=== PATIENT | male | born 1950 | race Caucasian/White ===

== ENCOUNTER 2017-06-13 01:01 | Emergency (ER) | payer OTHER ==
[~2017-06-13] VITALS: Ht 172.7 cm; Wt 90.9 kg
[2017-06-13 01:18] VITALS: BP 119/70; PULSE 78; RESP 16; O2SAT 95
--- NOTE | 2017-06-13 01:31 | ED.REPORT ---
HPI-Rash / Abscess Date of Service Jun 13, 2017 ED Provider: Neri Gross MD Pt is a 67 year old male with a history of HTN who presents to the ED complaining of shaking onset 13:30 today. He c/o associated left ankle swelling , left leg swelling, and left leg pain. He denies abdominal pain, open sores, and denies a history of cellulitis. The pt reports that he has been experiencing "flu-like symptoms" and his "skin feels like it is burning" since onset. He took aspirin without relief prior to arrival. Pt denies recent travel and states that he has not had his flu shot. Nursing Notes Stated Complaint: LEFT LEG/ ANKLE PAIN Chief Complaint: Extremity Trauma Nursing Notes Reviewed: Yes Allergies: Coded Allergies: No Known Allergies (Verified , 07/04/05) General Time Seen by MD: 01:29 Chief Complaint Other (Shaking) Hx Obtained From: Patient Arrived By: Walk-in Onset Occurred: 5 - 8 hours ago Symptom Duration: Since onset Location: : Lower extremity Quality: Painful Severity: Current: Moderate Severity: Maximum: Moderate Recent Healthcare: No recent doctor visit, No recent hospitalization Similar Sx Previous: No Past Medical History Past Medical History Reports: Hypertension Past Surgical History Triple bypass Smoking History Current Every Day Smoker Social History Alcohol Use: "Social" Drug Use: Denies drug use Ambulatory Status Independent Review of Systems GI: Denies: Abdominal pain Musculoskeletal: Reports: Extremity pain, Extremity swelling, Joint pain Complete sys rev & neg: except as marked. Neurologic: Reports: Shaking Physical Exam Initial Vital Signs Vital Signs (First) Date Time Temp Pulse Resp B/P Pulse Ox O2 Delivery O2 Flow Rate FiO2 06/13/17 01:18 37.2 78 16 119/70 95 Room Air Initial VS: Reviewed, Vital signs normal Head / Eyes: Atraumatic, Normocephalic Neck: Supple, Full range of motion Respiratory: Breath sounds normal, Clear to auscultation, No respiratory distress Cardiovascular: Regular rate & rhythm, Heart sounds normal, Intact distal pulses Neurologic: Alert, Oriented, Nonfocal Psychiatric: Mood/affect normal, Behavior normal General/Constitutional: Awake, Alert, Cooperative Skin: Warm, Dry Lower Extremity / Pelvis / MS: Neurologic intact, Vascular intact Erythematous tender swollen left lower leg. Abdomen: Atraumatic, Soft, Non-tender Reducible umbilical hernia Interpretation & Diagnostics Lab Results Interpretation Result Diagram: 06/13/17 0215 06/13/17 0215 Test 06/13/17 01:55 06/13/17 02:15 06/13/17 02:30 Hold Purple Top Tube Received (Received) Hold Blue Top Tube Received (Received) Hold Red Top Tube Received (Received) Hold [place] Top Tube Received (Received) Hold [place] Top Tube Received (Received) White Blood Count 14.0th/mm3 (3.8-10.1) Red Blood Count 3.95mil/mm3 (4.40-5.80) Hemoglobin 13.4g/dL (13.8-17.2) Hematocrit 39.9% (41.0-50.0) Mean Corpuscular Volume 101.0fL (81-100) Mean Corpuscular Hemoglobin 33.9pg (27.0-35.0) Mean Corpuscular Hemoglobin Concent 33.6% (32.0-37.0) Red Cell Distribution Width 12.9% (12.3-15.4) Platelet Count 161bil/L (150-400) Neutrophils (%) (Auto) 84% (40-74) Lymphocytes (%) (Auto) 5% (14-46) Monocytes (%) (Auto) 1% (4-12) Eosinophils (%) (Auto) 0% (0-5) Basophils (%) (Auto) 0% (0-3) Band Neutrophils % 10% (1-5) Sodium Level 135mEq/L (134-144) Potassium Level 5.1mEq/L (3.5-5.2) Chloride Level 96mEq/L (97-108) Carbon Dioxide Level 21mmol/L (18-29) Blood Urea Nitrogen 39mg/dL (8-27) Creatinine 1.76mg/dL (0.76-1.27) Estimat Glomerular Filtration Rate 41mL/min (>59) Glucose Level 118mg/dL (60-99) Lactic Acid Level 0.2mmol/L (0.4-2.0) Calcium Level 9.1mg/dL (8.5-10.1) Magnesium Level 1.5mg/dL (1.6-2.6) Total Bilirubin 1.8mg/dL (0.0-1.2) Aspartate Amino Transf (AST/SGOT) 36U/L (0-50) Alanine Aminotransferase (ALT/SGPT) 33U/L (0-44) Alkaline Phosphatase 62U/L (25-160) Troponin T 0.010ug/L (0.0-0.011) Total Protein 7.4g/dL (6.4-8.4) Albumin 4.5g/dL (3.4-5.0) Prothrombin Time 15.8sec (8.1-12.5) Prothromb Time International Ratio 1.47ratio Lab Results Interpretation: White blood count, dehydration ECG Interpretation ECG Interpretation: Atrial fibrillation with a rate of 89. Time: 02:33 Interpreted by: ED physician Re-Eval/Medical Decision Med Decision/Clinical Course 67-year-old male who has a left lower extremity cellulitis with some shaking riders earlier. His white count is elevated with a shift to the left. His lactic acid is normal. He does not have unstable vital signs. He was given IV clindamycin and Rocephin and will be discharged home with IV clindamycin. He will follow-up with his primary doctor or return here for recheck in one to 2 days if it is not improving. Source of Hx: Old records Re-Evaluation/Progress : Time of Eval: 05:01 Re-Evaluation/Progress Note: Pt rechecked. Informed pt of plan for discharge. Pt understands and agrees with plan for discharge. F/U instructions and RTER warnings given. All questions addressed. Counseled Regarding: Diagnosis, Lab results, Need for follow-up, When/why to return to ED Discharge & Departure Impression: Primary Impression: Cellulitis of left lower leg Disposition: Home Discharge Condition All VS Reviewed: Yes Condition: Stable Patient Instructions: Cellulitis (ED) Additional Instructions: There is an infection of the lower leg. Your white blood count is elevated at 14,000. UA were given first doses of Rocephin and clindamycin antibiotics IV. Continue the clindamycin orally, 300 mg 3 times a day, prepack dispensed. Tylenol as needed for pain. Oxycodone/acetaminophen 5/325, one every 4-6 hours as needed for severe pain, #10 dispensed. Drink plenty of fluids. Warm compresses to the leg. Elevation of the leg. If you worsen significantly with more swelling, more pain, fever, or lightheadedness and dizziness, return to the emergency room. Call me at [phone] between the hours of 9 PM and 6 AM Friday or Friday night if you have any questions or concerns. Referrals: Dre Hanley MD (PCP) Scribe Attestation Portions of this note were transcribed by Adriana Jaime. I, Dr. Gross personally performed the history, physical exam and medical decision-making; I reviewed and confirmed the accuracy of the information in the transcribed note. Signed by: Danni Clemente, 06/13/17 and 03:30. copies to: Dre Hanley MD, Howard L MD Jun 13, 2017 01:31 Adriana Pavon Jun 13, 2017 01:39
[2017-06-13] MEDS ORDERED: Clindamycin Inj 900 MG in IV Premix 1 EACH IV ONE (02:15)
[2017-06-13] MEDS ORDERED: cefTRIAXone Inj 2,000 MG in Dextrose 5% Minibag Plus 50 ML IV ONE (02:15)
[2017-06-13] MEDS ORDERED: 0.9% Sodium Chloride 1,000 ML IV ONE (02:15)
[2017-06-13 02:28] LABS: EOSINOPHILS % (AUTO) 0 % (0-5); Mean Corpuscular Hemoglobin 33.9 pg (27.0-35.0); Platelet Count 161 bil/L (150-400)
[2017-06-13 02:36] LABS: TROPONIN T 0.01 ug/L (0.0-0.011)
[2017-06-13] MEDS ORDERED: Acetaminophen IV 1,000 MG in IV Premix 1 EACH IV ONE (02:40)
[2017-06-13 02:46] LABS: Magnesium 1.5 mg/dL (1.6-2.6)
[2017-06-13 02:52] LABS: INR 1.47 ratio
[2017-06-13 03:01] LABS: BASOPHILS % (AUTO) 0 % (0-3); MONOCYTES % (AUTO) 1 % (4-12); NEUTROPHILS % (AUTO) 84 % (40-74)
[2017-06-13] MEDS ORDERED: _oxyCODONE/APAP 5-325 mg Tablet PO PRN (05:05)
[2017-06-13 05:40] VITALS: BP 125/78; PULSE 79; RESP 14; O2SAT 98
[2017-06-13] MEDS ORDERED: _Clindamycin 150 mg Capsule PO SCH (06:30)
[2017-06-14] MEDS ORDERED: WARF5TAB PO (11:23)
[2017-06-14] MEDS ORDERED: POTA20TA16 PO (11:23)
[2017-06-14] MEDS ORDERED: IRBE150T28 PO (11:23)
[2017-06-14] MEDS ORDERED: TORS20TA3 PO (11:23)
[2017-06-14] MEDS ORDERED: ATOR40TA69 PO (11:23)
[2017-06-14] MEDS ORDERED: ATEN100T PO (11:23)
== END 2017-06-13 05:41 | disposition home or self-care (01) ==
LOC: SED 01:01
DX: L03.116 Cellulitis of left lower limb (principal); R25.1 Tremor, unspecified; I10 Essential (primary) hypertension; F17.200 Nicotine dependence, unspecified, uncomplicated
CPT/HCPCS: 36415; 80053; 83605; 83735; 84484; 85025; 85610; 87040; 87077; 87147; 87186; 93005; 96365; 96366; 96368; 96375; 99285; J0131; J0696; J3490; J7030

== ENCOUNTER 2017-06-14 11:12 | Inpatient (IN) | payer MEDICARE, OTHER ==
[~2017-06-14] VITALS: Ht 172.7 cm; Wt 95.7 kg
[2017-06-14 11:16] VITALS: BP 125/84; PULSE 92; RESP 16; O2SAT 100
[2017-06-14] MEDS ORDERED: TORS20TA3 PO (11:23)
[2017-06-14] MEDS ORDERED: IRBE150T28 PO (11:23)
[2017-06-14] MEDS ORDERED: ATEN100T PO (11:23)
[2017-06-14] MEDS ORDERED: WARF5TAB PO (11:23)
[2017-06-14] MEDS ORDERED: POTA20TA16 PO (11:23)
[2017-06-14] MEDS ORDERED: ATOR40TA69 PO (11:23)
--- NOTE | 2017-06-14 11:24 | ED.REPORT ---
HPI-General Illness Date of Service Jun 14, 2017 ED Provider: Dr. Luis Rocha The patient is a 67 year old male with a history of HTN who presents to the ED c /o a lower left leg infection onset yesterday morning and increasing in severity. He c/o associated left ankle swelling, left leg swelling, left leg pain, fever, chills, shaking, and nausea. Pt was seen yesterday for similar symptoms, given IV antibiotics and discharged from the ED with oral medication. His pain has improved slightly but the swelling and redness have increased in severity. Blood cultures obtained yesterday show positive results for Beta Streptococcus Group G. Pt denies cough, dysuria, hematuria, vomiting, and any other symptoms. Nursing Notes Stated Complaint: FOLLOW UP Chief Complaint: Extremity Trauma Nursing Notes Reviewed: Yes Allergies: Coded Allergies: No Known Allergies (Verified , 06/14/17) Scheduled Atenolol (Atenolol) 100 Mg Tablet 100 MG PO DAILY Atorvastatin Calcium (Atorvastatin Calcium) 40 Mg Tablet 40 MG PO DAILY Potassium Chloride (Potassium Chloride) 20 Meq Tab.er.prt 20 MEQ PO BID TAKE WITH FOOD Torsemide (Torsemide) 20 Mg Tablet 20 MG PO DAILY Warfarin Sodium (Coumadin) 5 Mg Tablet 2.5-5 MG PO DAILY friday 5mg fri,, 2.5mg fri 5mg fri , fri, fri 2.5mg Miscellaneous Medications Irbesartan (Irbesartan) 150 Mg Tablet Unknown Dose PO General Time Seen by MD: 11:24 Chief Complaint Other (lower left leg swelling ) Hx Obtained From: Patient Arrived By: Walk-in Sudden in Onset?: Yes Onset Occurred: Yesterday Symptom Duration: Since onset Location: : Leg left Quality: Painful Severity: Current: Mild Associated with: Reports: Fever Recent Healthcare: Recent doctor visit Similar Sx Previous: Yes Past Medical History Past Medical History Reports: Hypertension Past Surgical History Triple bypass Smoking History Current Every Day Smoker Social History Alcohol Use: "Social" Drug Use: Denies drug use Ambulatory Status Independent Review of Systems Full Review of Systems Constitutional: Reports: Chills, Fever Respiratory: Denies: Non-productive cough GI: Reports: Nausea, Denies: Diarrhea, Vomiting Male: Denies Dysuria, Denies Hematuria, Denies Incontinence Musculoskeletal: Reports: Extremity pain, Extremity swelling Skin: Reports Rash, Reports Swelling Neurologic: Reports: Shaking, Denies: Dizziness, Numbness Complete sys rev & neg: except as marked. Physical Exam Vital Signs Vital Signs Date Time Temp Pulse Resp B/P Pulse Ox O2 Delivery O2 Flow Rate FiO2 06/14/17 11:16 36.9 92 16 125/84 100 Room Air Initial VS: Reviewed General/Constitutional: Awake, Alert, Cooperative, Not toxic appearing Head / Eyes: Atraumatic, Normocephalic, PERRL Respiratory / Chest: Atraumatic, Breath sounds NL, Breath sounds = bilat Cardiovascular: Heart rate NL, Regular rhythm, Heart sounds NL Abdomen: Atraumatic, Soft, Non-tender Upper Extremities Upper Extremity / MS: Atraumatic, Inspection NL, Full range of motion, No deformity Wrist / Hand: Atraumatic, Inspection NL, Full range of motion, No deformity Left Leg / Calf: Positive: Erythema present, Swelling present..., Tenderness present... erythematous tender swollen left lower leg no obviuos wound Neurologic: Oriented X3, Speech NL Interpretation & Diagnostics Lab Results Interpretation Result Diagram: 06/14/17 1209 Test 06/14/17 12:09 White Blood Count 9.9th/mm3 (3.8-10.1) Red Blood Count 3.82mil/mm3 (4.40-5.80) Hemoglobin 13.0g/dL (13.8-17.2) Hematocrit 39.0% (41.0-50.0) Mean Corpuscular Volume 102.1fL (81-100) Mean Corpuscular Hemoglobin 34.0pg (27.0-35.0) Mean Corpuscular Hemoglobin Concent 33.3% (32.0-37.0) Red Cell Distribution Width 13.0% (12.3-15.4) Platelet Count 136bil/L (150-400) Neutrophils (%) (Auto) 91.4% (40-74) Lymphocytes (%) (Auto) 3.9% (14-46) Monocytes (%) (Auto) 2.9% (4-12) Eosinophils (%) (Auto) 0.1% (0-5) Basophils (%) (Auto) 0.1% (0-3) Hold [place] Top Tube Received (Received) Re-Eval/Medical Decision Med Decision/Clinical Course Worsening cellulitis with positive blood cultures. Patient will be admitted. Time of Eval: 11:38 Re-Evaluation/Progress Note: Pt checked. All 4 blood cultures drawn show the same results. Plan for admission. 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 Counseled Regarding: Diagnosis, Lab results, Need for admission Discharge & Departure Primary Impression: Bacterial infection due to Streptococcus, group G Additional Impression: Cellulitis of left lower leg Disposition: ADMITTED TO HOSPITAL Discharge Condition All VS Reviewed: Yes Condition: Stable Referrals: Dre Hanley MD (PCP) [place] Attestation Portion of this note were transcribed by Florence Mcnamara. I, Dr. Rocha, personally performed the history, physical exam, and medical decision-making: I reviewed and confirmed the accuracy for the information in the transcribed note. Signed by: chris Mayorga, 06/14/17 1300 copies to: Dre Hanley MD, Timothy S DO Jun 14, 2017 11:24 Florence Mcnamara Jun 14, 2017 11:41
[2017-06-14] MEDS ORDERED: 0.9% Sodium Chloride 1,000 ML IV ONE (11:26)
[2017-06-14] MEDS ORDERED: cefTRIAXone Inj 2,000 MG in Dextrose 5% Minibag Plus 50 ML IV ONE (11:30)
[2017-06-14 12:18] LABS: BASOPHILS % (AUTO) 0.1 % (0-3); EOSINOPHILS % (AUTO) 0.1 % (0-5); MONOCYTES % (AUTO) 2.9 % (4-12); Mean Corpuscular Volume 102.1 fL (81-100); NEUTROPHILS % (AUTO) 91.4 % (40-74); Platelet Count 136 bil/L (150-400)
[2017-06-14] MEDS ORDERED: Alum-Mag Hydrox-Simeth 30 mL Suspension PO PRN ×2 (12:35→14:20)
[2017-06-14] MEDS ORDERED: Ondansetron 2 mg/mL 2 mL Inj IVPUSH PRN ×2 (12:35→14:20)
[2017-06-14 13:12] LABS: Magnesium 1.8 mg/dL (1.6-2.6)
[2017-06-14 13:23] VITALS: BP 132/89; RESP 16; O2SAT 93
[2017-06-14 13:25] VITALS: BP 132/89; PULSE 92; RESP 16; O2SAT 93
--- NOTE | 2017-06-14 13:45 | NUR ---
Pt brought to floor via stretcher from ED. Report received from ED Rn Debo. Pt Ind in room, steady gait. Belongings in bedside table, and closet. Pt wt, vs complete. Pt would like to know the poc for today. 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 Pt otherwise in stable state. Addendum: 06/14/17 at 1442 by ALMA HAWTHORNE RN Dr francisco repeat orders of CMP questioned by lab. Dr francisco and responded to cancel repeat orders.
[2017-06-14 14:08] VITALS: BP 151/85; PULSE 85; RESP 16; O2SAT 100
[2017-06-14] MEDS ORDERED: 0.9% Sodium Chloride 1,000 ML IV SCH (15:35)
--- NOTE | 2017-06-14 15:54 | PCM.HPMED ---
Subjective Date of Service Jun 14, 2017 Primary Provider: Admitting Physician: Alvaro Simpson MD Primary Care Physician: Dre Hanley MD Attending Physician: Alvaro Simpson MD Chief Complaint: Septicemia Cellulitis History of Present Illness: Patient is a 67 yo male with pmh of afib (on coumadin), HTN, CAD (s/p CABG), Hypercholestrolemia, who is being admitted for cellulitis complicated with septicemia. He said his symptoms started about 3-4 days ago when he was at work , started feel chills, muscle aches, as if it was "flu". He came to ER , had leukocytosis with left shift and was found to have cellulitis in his left foot. He was given oral abx and sent home. Blood Cx were taken at that point. Patient said he felt a little better, however did not feel a lot of difference since he was discharged from ER. He then received a call from [facility] regarding his positive blood cultures (Beta strep group G) and was asked to come to the hospital. He denies chest pain, shortness of breath. However does endorse some diarrhea couple of days ago. Patient said the erythema and edema around his left leg has decreased from what it was couple of days ago. In ER : Vitals stable, afebrile, no leukocytosis. Allergies Coded Allergies: No Known Allergies (Verified , 06/14/17) Constitutional: : Chills: Malaise: WeaknessNo: Fever, Other, Sweats Eyes: Denies: Blurred Vision, Conjunctive Inflammation, Double Vision, Eyelid Inflammation, Other, Pain, Pigmentosa, Redness, Retinitis, Vision Changes ENT: Denies: Dental Problems, Dysphagia, Ear Discharge, Ear Pain, Hoarseness, Membranes Dry, Nasal Congestion, Nose Discharge, Nose Pain, Other, Throat Pain, Tinnitus, Ulcers/Sores in Mouth Cardiovascular: Denies: Chest Pain, Edema, Lt Headedness, Orthopnea, Other, Palpitations, Paroxysmal Noc. Dyspnea Respiratory: Reports: Shortness of Breath, Denies: Cough, Hemoptysis, Other, Pleuritic Chest Pain, SOB with Exertion, Sputum, Wheezing Gastrointestinal: Reports: Other (as per HPI) Genitourinary: Reports: Change in Frequency, Other, Denies: Anuria, Dysuria, Hematuria, Incontinence, Nocturia, Retention Musculoskeletal: Reports: Other (as per HPI) Skin: Reports: Other (as per HPI) Neurological: Denies: Change in Speech, Confusion, Dizziness, Dyskinesia, Hyper Reflexia, Incoordination, Numbness, Other, Seizures, Somnolence, Tremors, Weakness Psychologic: Denies: Agitation, Disorientation, Excitation, Giddiness, Hostile , Insomnia, Instability, Lilly, Nervousness, Night Terrors, Other, Perseveration , Phobia, Sexual Disturbances Endocrine: Denies: Change in Appitite, Diaphoresis, Intolerent to Heat/Cold, Polydipsea, Polyuria PMH HTN CAD s/p CABG (2004) Pericarditis Afib on coumadin Hypercholetrolemia Surgical History CABG (2004) Family History Father : Cardiac disease Social History Hx Alcohol Use: Yes (rare) Hx Substance Use: No Smoking Status: Current Every Day Smoker Exam Vital Signs Vital Sign - Last Date Time Temp Pulse Resp B/P Pulse Ox O2 Delivery O2 Flow Rate FiO2 06/14/17 14:08 36.6 85 16 151/85 100 Room Air Exam Initial VS: Reviewed General/Constitutional: Awake, Alert, Cooperative, Not toxic appearing Head / Eyes: Atraumatic, Normocephalic, PERRL Respiratory / Chest: Atraumatic, Breath sounds NL, Breath sounds = bilat Cardiovascular: Heart rate NL, Irregularly irregular, Heart sounds NL Abdomen: Atraumatic, Soft, Non-tender Skin: erythema around the left leg below knee, edema non pitting Lab and Diagnostics Result Diagram: 06/14/17 1209 06/14/17 1209 Microbiology EDUARDO CULTURE BLOOD Preliminary 06/14/17-0715 Organism 1 BETA STREPTOCOCCUS GROUP G SENSITIVITY COMMENTS Susceptibilty testing to follow. X2 Assessment & Plan Patient is a 67 yo male with pmh of afib (on coumadin), HTN, CAD (s/p CABG), Hypercholestrolemia, who is being admitted for cellulitis complicated with septicemia. > Septicemia with beta strep group G infection - Blood cultures X 2 positive group G strep, as per case studies skin is the most common source, which fits in with patient's presentation of cellulitis - PCT - 22.86, will trend, ESR and CRP ordered - continue ceftriaxone 2gm Q24h - repeat blood cultures - tylenol for pain - will get lower extremity doppler to rule out dvt > Increased urinary frequency - as per patient, he has been going to bathroom more often now - will get UA - hba1c pending > Afib - rate controlled - on warfarin , pharmacy to dose, appreciate management > CAD s/p CABG - continue home meds : beta ryland, TEREZA i, statins > HTN - on irbesartan 150 outpatient, converted to losartan 50 in patient - continue torsemide FEN: Cardiac diet Patient likely to stay > 2 midnights due to the disease process and complexity which may arise from it. Pain Evaluation: Adequate Pain Control VTE Prophylaxis: Other (on warfarin ) Resuscitation Status: DNR/DNI:Do Not Resuscitate/Intubate Time spent 45 mins Attending Statement Discussed Code status with patient. He wants DNR/DNI Alvaro Simpson MD Jun 14, 2017 15:54
[2017-06-14 16:57] LABS: INR 1.19 ratio
[2017-06-14 18:33] VITALS: BP 145/90; PULSE 93; RESP 16; O2SAT 99
--- NOTE | 2017-06-14 18:34 | PCM.CONPHA ---
Subjective Septicemia Cellulitis Reason for Pharmacy Consult: Anticoagulation Management Assessment/Plan Assessment/Plan Warfarin Management by Pharmacy Indication: Afib Home Dose: Warfarin 2.5 mg M/; 5mg AOD INR Goal: 2-3 Duration: Chronic INR: 1.19 Assessment/Plan -Subtherapeutic INR at admit with last dose taken yesterday morning -Will restart warfarin at 5 mg this evening. -Pharmacy to monitor INR/CBC/signs of bleeding while inpatient. Jonathan Morillo Dwaine Pharm.D. Kamaljit Castillo Jun 14, 2017 18:34
[2017-06-14 22:08] VITALS: BP 155/83; PULSE 86; RESP 17; O2SAT 98
[2017-06-15 04:29] VITALS: BP 147/88; PULSE 68; RESP 17; O2SAT 99
--- NOTE | 2017-06-15 04:47 | NUR ---
PAIN pt. given new order of oxycodone IR 5 mg prn for pain, given 1 dose this shift, effective, pt. calm and cooperative to staff and care, uses call light appropriately, VSS afebrile, hourly checks and will continue to monitor.
[2017-06-15 07:03] LABS: BASOPHILS % (AUTO) 0.1 % (0-3); EOSINOPHILS % (AUTO) 0.1 % (0-5); Mean Corpuscular Hemoglobin 33.8 pg (27.0-35.0); Mean Corpuscular Volume 101.6 fL (81-100); NEUTROPHILS % (AUTO) 85.1 % (40-74); Platelet Count 137 bil/L (150-400)
[2017-06-15 07:45] LABS: INR 1.15 ratio
[2017-06-15] MEDS: cefTRIAXone Inj 2,000 MG in Dextrose 5% Minibag Plus 50 ML IV SCH (08:16)
[2017-06-15 09:02] LABS: ERYTHROCYTE SEDIMENTATION RATE 39 mm/hr (0-30)
[2017-06-15 09:14] VITALS: BP 155/82; PULSE 92; RESP 16; O2SAT 97
--- NOTE | 2017-06-15 09:34 | PCM.PNMED ---
Subjective Date of Service Jun 15, 2017 Exam Vital Signs Vital Sign - Last Date Time Temp Pulse Resp B/P Pulse Ox O2 Delivery O2 Flow Rate FiO2 06/15/17 09:14 37.1 92 16 155/82 97 Room Air Intake and Output 06/14/17 06/14/17 06/15/17 Cumulative From/Thru 15:00 23:00 07:00 06/14/17 11:16 - 06/15/17 06:15 Intake Total 1000 ml 506 ml 940 ml 2446 ml Output Total 1100 ml 600 ml 1700 ml Balance 1000 ml -594 ml 340 ml 746 ml Intake Oral 400 ml 940 ml 1340 ml IV Total 1000 ml 106 ml 1106 ml Output Urine Total 1100 ml 600 ml 1700 ml # Voids 6 6 # Bowel Movements 0 0 Exam Initial VS: Reviewed General/Constitutional: Awake, Alert, Cooperative, Not toxic appearing Head / Eyes: Atraumatic, Normocephalic, PERRL Respiratory / Chest: Atraumatic, Breath sounds NL, Breath sounds = bilat Cardiovascular: Heart rate NL, Irregularly irregular, Heart sounds NL Abdomen: Atraumatic, Soft, Non-tender Skin: erythema around the left leg below knee, edema non pitting Lab and Diagnostics Result Diagram: 06/15/17 0640 06/15/17 0640 Microbiology EDUARDO CULTURE BLOOD Preliminary 06/14/17-0715 Organism 1 BETA STREPTOCOCCUS GROUP G SENSITIVITY COMMENTS Susceptibilty testing to follow. X2 Assessment & Plan Patient is a 67 yo male with pmh of afib (on coumadin), HTN, CAD (s/p CABG), Hypercholestrolemia, who is being admitted for cellulitis complicated with septicemia. > Septicemia with beta strep group G infection - Blood cultures X 2 positive group G strep, as per case studies skin is the most common source, which fits in with patient's presentation of cellulitis - PCT - 22.86, trended down to ~ 11 - continue ceftriaxone 2gm Q24h - repeat blood cultures, pending - tylenol for pain - ESR, CRP elevated , likely 2/2 to ongoing infection, will get MRI of LE to rule out osteomyelitis if his symptoms dont improve - will get lower extremity doppler to rule out dvt , pending > BERTRAM , resolved - Cr improved after fluid resuscitation - will continue to trend > Increased urinary frequency - as per patient, he has been going to bathroom more often now - will get UA - hba1c pending > Afib - rate controlled - on warfarin , pharmacy to dose, appreciate management > CAD s/p CABG - continue home meds : beta ryland, TEREZA i, statins > HTN - on irbesartan 150 outpatient, converted to losartan 50 in patient - continue torsemide FEN: Cardiac diet Patient likely to stay > 2 midnights due to the disease process and complexity which may arise from it. VTE Prophylaxis: Other (on warfarin ) Resuscitation Status: DNR/DNI:Do Not Resuscitate/Intubate Time spent 35 mins Alvaro Simpson MD Jun 15, 2017 09:34
--- NOTE | 2017-06-15 11:23 | PCM.PHAPRO ---
Progress Date of Service: Jun 15, 2017 Warfarin dosing Date Jun 15-May INR 1.19 1.15 INR change -0.04 Warf Dose 5MG 5MG Arturo Rodriguez Jun 15, 2017 11:23
[2017-06-15 17:47] VITALS: BP 157/81; PULSE 67; RESP 16; O2SAT 99
[2017-06-15] MEDS: LORazepam 0.5 mg Tablet PO PRN (21:50)
[2017-06-15 22:01] VITALS: BP 157/88; PULSE 81; RESP 18; O2SAT 99
[2017-06-16 02:48] VITALS: BP 157/90; PULSE 72; RESP 16; O2SAT 100
--- NOTE | 2017-06-16 04:09 | NUR ---
Pain/Activity pt c/o 05/03 back/leg pain x1. Administered 5mg of Oxycodone. on reassessment, pt appears asleep with no s/sx of pain/discomfort. pt has been ambulating to the restroom independently. left leg below knees still red, little bit swollen, and warm to touch. encouraged pt to keep it elevated. pt afebrile. will continue to monitor and provide care.
[2017-06-16 06:36] VITALS: BP 154/78; PULSE 80; RESP 16; O2SAT 99
[2017-06-16 06:59] LABS: BASOPHILS % (AUTO) 0.2 % (0-3); EOSINOPHILS % (AUTO) 1.2 % (0-5); MONOCYTES % (AUTO) 11.1 % (4-12); Mean Corpuscular Hemoglobin 33.9 pg (27.0-35.0); Mean Corpuscular Volume 100.8 fL (81-100); NEUTROPHILS % (AUTO) 76.2 % (40-74); Platelet Count 142 bil/L (150-400)
[2017-06-16 07:05] LABS: INR 1.46 ratio
[2017-06-16] MEDS: cefTRIAXone Inj 2,000 MG in Dextrose 5% Minibag Plus 50 ML IV SCH (07:41)
--- NOTE | 2017-06-16 09:12 | DRSVH ---
PROCEDURE: US VEINOUS LEG DUPLEX UNILATERAL, LEFT INDICATIONS: Cellulitis , edema , concerning for DVT. TECHNIQUE: Real-time imaging, as well as color and pulse Doppler interrogation, were performed of the lower extr emity deep veins from the inguinal ligament to the popliteal fossa. COMPARISON: None. FINDINGS: The deep veins are normally compressible, and free of intraluminal thrombus. Color and pu lse Doppler demonstrate normal phasic intraluminal flow. There is normal augmentation response to di stal compression maneuver. There is marked soft tissue swelling. IMPRESSION: 1. No deep venous thrombosis in the left lower extremity. 2. Marked soft tissue swelling. Dictated by: Radha Weaver M.D. on 06/16/2017 at 9:04 Approved by: Radha Weaver M.D. on 06/16/2017 at 9:10
--- NOTE | 2017-06-16 10:42 | PCM.PNMED ---
Subjective Date of Service Jun 16, 2017 Subjective Patient seen and examined today. Slept last night. Feels the redness and swelling is worse. Vitals stable. Exam Vital Signs Vital Sign - Last Date Time Temp Pulse Resp B/P Pulse Ox O2 Delivery O2 Flow Rate FiO2 06/16/17 06:36 36.8 80 16 154/78 99 Room Air Intake and Output 06/15/17 06/15/17 06/16/17 Cumulative From/Thru 15:00 23:00 07:00 06/14/17 11:16 - 06/16/17 00:34 Intake Total 674 ml 3120 ml Output Total 200 ml 1900 ml Balance 474 ml 1220 ml Intake Oral 600 ml 1940 ml IV Total 74 ml 1180 ml Output Urine Total 200 ml 1900 ml # Voids 2 8 # Bowel Movements 0 Exam Initial VS: Reviewed General/Constitutional: Awake, Alert, Cooperative, Not toxic appearing Head / Eyes: Atraumatic, Normocephalic, PERRL Respiratory / Chest: Atraumatic, Breath sounds NL, Breath sounds = bilat Cardiovascular: Heart rate NL, Irregularly irregular, Heart sounds NL Abdomen: Atraumatic, Soft, Non-tender Skin: erythema around the left leg below knee, edema non pitting Lab and Diagnostics Result Diagram: 06/16/1761406/16/17 06 Microbiology EDUARDO CULTURE BLOOD Preliminary 06/14/17-714 Organism 1 BETA STREPTOCOCCUS GROUP G SENSITIVITY COMMENTS Susceptibilty testing to follow. X2 Assessment & Plan Patient is a 67 yo male with pmh of afib (on coumadin), HTN, CAD (s/p CABG), Hypercholestrolemia, who is being admitted for cellulitis complicated with septicemia. >Bacteremia with beta strep group G infection - Blood cultures X 2 positive group G strep, as per case studies skin is the most common source, which fits in with patient's presentation of cellulitis - PCT - 22.86, trended down to ~ 11, will check for tomorrow - continue ceftriaxone 2gm Q24h D3 - repeat blood cultures, pending final read - tylenol for pain - ESR, CRP elevated , likely 2/2 to ongoing infection, will get MRI of LE to rule out osteomyelitis, if worsens will get ID consult - negative for DVT > BERTRAM , resolved - Cr improved after fluid resuscitation - will continue to trend > Increased urinary frequency, resolved - as per patient, he has been going to bathroom more often now - will get UA - hba1c normal > Afib - rate controlled - on warfarin , pharmacy to dose, appreciate management > CAD s/p CABG - continue home meds : beta ryland, TEREZA i, statins > HTN - on irbesartan 150 outpatient, converted to losartan 50 in patient - continue torsemide FEN: Cardiac diet Patient likely to stay > 2 midnights due to the disease process and complexity which may arise from it. VTE Prophylaxis: Other (on warfarin ) VTE Mechanical Devices: Venous Foot Pump Resuscitation Status: DNR/DNI:Do Not Resuscitate/Intubate Time spent 35 mins Alvaro Simpson MD Jun 16, 2017 10:42
[2017-06-16] MEDS: HYDROcodone-APAP 5-325 mg Tablet PO PRN ×3 (12:10→20:32)
--- NOTE | 2017-06-16 12:37 | NUR ---
Social Work-initial assessment/ multidisciplinary rounds: Data:See initial assessment. Pt is a 67 y/o male who was admitted on 06/14/17 for strep bactermia per H&P. Pt's insurance is [employer] and PCP is Dre Hanley Md. EMR Reviewed. Pt's readmission score is 3. SW met with pt at bedside to discuss discharge planning, SW role explained. Pt is alert and oriented x3. Pt resides at home with his and son where he remains independent with ADls. Pt drives and does not use any DME. Pt has no HH or SNF history. Pt has no oil heaterman care insurance or VA benefits. SW discussed DPOA/advanced directive, pt confirms this has been completed, SW encouraged a copy to be brought in. Pt is currently on IV abx. SW provided pt with discharge planning checklist and encouraged him to call with any questions. SW provided phone number and plan on white board in room. Pt confirms his family will provide transport home. No anticipated discharge needs. SW will continue to follow if needs arise. Assessment:Pt who is independent at baseline. Plan:Pt to discharge home when medically stable via POV. No anticipated discharge needs. SW will continue to follow if needs arise. JAVON Solomon Addendum: 06/16/17 at 1243 by ERIN MEJIA Amended: Links added.
[2017-06-16 13:33] VITALS: BP 137/87; PULSE 76; RESP 18; O2SAT 100
[2017-06-16 16:33] LABS: APPEARANCE,URINE CLEAR (CLEAR,HAZY); COLOR,URINE STRAW (YELLOW); OCCULT BLOOD,URINE NEGATIVE (NEGATIVE); PH,URINE 5.5 (5.0-8.0); UROBILINOGEN,URINE NORMAL (NORMAL)
--- NOTE | 2017-06-16 17:50 | NUR ---
Pain Pt was in considerable pain this morning several hours after receiving PRN oxycodone. paged and Q4 vicodin ordered. This was given, and pt. states increased comfort this afternoon. Will continue to monitor.
[2017-06-16 20:00] VITALS: BP 155/89; PULSE 75; RESP 16; O2SAT 95
--- NOTE | 2017-06-16 21:11 | DRSVH ---
PROCEDURE: MRI TIBIA FIBULA LEFT WITH AND WITHOUT CONTRAST ([id number]) INDICATIONS: 67-year-old male with left lower extremity cellulitis. Evaluate for osteomyelitis. TECHNIQUE: Noncontrast coronal T1 spin echo and STIR, sagittal T1 spin echo with fat saturation and STIR, axial T1 spin echo and T2 fast spin echo with fat saturation. After the administration of contrast, axial/ sagittal/coronal T1 spin echo with fat saturation through the right lower leg. COMPARISON: None. FINDINGS: Image quality: Excellent. Bones: The visualized bone marrow demonstrates normal signal on all sequences. The overlying cortex appears intact. No abnormal intraosseous enhancement. Soft tissues: Subcutaneous tissues demonstrate circumferential moderate edema with associated interst itial enhancement. The scanned muscles demonstrate normal overall bulk and internal signal, except fo r localized interstitial edema and enhancement involving the peroneus muscle on axial image 25. Sagit jordi images demonstrate fusiform thickening of the Achilles tendon. IMPRESSION: 1. Findings consistent with extensive left lower extremity cellulitis, along with changes consistent with early pyomyositis involving the midportion of the peroneus muscle lateral to the fibular shaft. 2. No abscess formation. No findings to suggest necrotizing fasciitis. 3. Distal Achilles tendinopathy, without tears. Dictated by: Ochoa Nicholas M.D. on 06/16/2017 at 21:02 Approved by: Ochoa Nicholas M.D. on 06/16/2017 at 21:10
[2017-06-16] MEDS: LORazepam 0.5 mg Tablet PO PRN (22:46)
[2017-06-17] VITALS: BP 137/83; PULSE 68; RESP 16; O2SAT 98
[2017-06-17] MEDS: HYDROcodone-APAP 5-325 mg Tablet PO PRN ×4 (01:55→21:59)
[2017-06-17 04:40] VITALS: BP 133/76; PULSE 70; RESP 16; O2SAT 99
--- NOTE | 2017-06-17 05:23 | NUR ---
PAIN Pt. c/o left leg, administered prn vicodin, effective. VSS afebrile, call light in reach at all times, continue to monitor pain management needs and will follow current plan of care.
--- NOTE | 2017-06-17 05:33 | PCM.PNMED ---
Subjective Date of Service Jun 17, 2017 Subjective This is a 67 yo male with PMH of fib, HTN, CAD, pulm HTN here on day #3 of hospitalization for cellulitis of left ankle and lower leg. Currently on Ceftriaxone. Was sent home from ED, but was called back due to positive blood cx with strep group B 4/4 bottles. He was thought to be not improving. MRI last night showed "Findings consistent with extensive left lower extremity cellulitis, along with changes consistent with early pyomyositis involving the midportion of the peroneus muscle lateral to the fibular shaft." His leg appears swollen, feels warm, erythema extending into his groin proximally. Pt denies erythema in the genital area. No overnight fevers or chills. Says pain is controlled but comes back if he does not take percocet. Denies SOB. Exam Vital Signs Vital Sign - Last Date Time Temp Pulse Resp B/P Pulse Ox O2 Delivery O2 Flow Rate FiO2 06/17/17 04:40 36.8 70 16 133/76 99 Room Air Intake and Output 06/16/17 06/16/17 06/17/17 Cumulative From/Thru 15:00 23:00 07:00 06/14/17 11:16 - 06/17/17 04:41 Intake Total 400 ml 755 ml 4275 ml Output Total 125 ml 2025 ml Balance 275 ml 755 ml 2250 ml Intake Oral 400 ml 680 ml 3020 ml IV Total 75 ml 1255 ml Output Urine Total 125 ml 2025 ml # Voids 3 8 19 # Bowel Movements 0 0 Exam General/Constitutional: Awake, Alert, Cooperative, Not toxic appearing Head / Eyes: Atraumatic, Normocephalic, PERRL Respiratory / Chest: Atraumatic, Breath sounds NL Cardiovascular: Heart rate NL, Irregularly irregular, Heart sounds NL Abdomen: Atraumatic, Soft, Non-tender Skin: erythema extending proximally above the left knee, into the thigh medially. edema non pitting, selling is also present around the L ACL area but erythema is currently limited to above the foot. Circumferential in nature. Neuro: No altered sensation in legs, 1+ patellar reflex MSK: weaker left lower extremity IVs and Medications Medications Reviewed: Medications were reviewed in detail Lab and Diagnostics Result Diagram: 06/16/1761406/16/17614 Microbiology DEUARDO CULTURE BLOOD Preliminary 06/14/17-714 Organism 1 BETA STREPTOCOCCUS GROUP G SENSITIVITY COMMENTS Susceptibilty testing to follow. X2 Assessment & Plan Patient is a 67 yo male with pmh of afib (on coumadin), HTN, CAD (s/p CABG), Hypercholestrolemia, who is being admitted for cellulitis complicated with bacteremia and pyomyositis >Bacteremia secondary to cellulitis and pyomyositis with beta strep group G infection, POA active - Blood cultures X 2 positive group G strep, as per case studies skin is the most common source, which fits in with patient's presentation of cellulitis - PCT - 22.86--> 11-->2.97 trending down - Broadened antibiotics to vanc + zosyn, after repeating the blood cx. [facility] recommendation for pyomyositis is this combination - repeat blood cultures, pending final read - tylenol for pain - ESR, CRP continued to be elevated (38, 10.6) , likely 2/2 to ongoing infection, MRI of LE showd no abscesses, did show pyomyositis of peroneal muscle - Discussed case with Dr. Malik Rabago, who advised that at this time based on his MRI as there is no concern for abscess or necrotizing fasciitis, general surgery consult is not called for. We appreciate his time. -- Discussed case with Dr. Gonzalez over the phone, who recommended MRSA nasal swab ordered and was negative), ASO titers, pro-calcitonin. He feels patient can stay on Vanco and Zosyn. Asked wound care to take a picture of patient's leg after obtaining patient's consent, and sent to Dr. Gonzalez. Dr. Gonzalez has received a picture and reviewed it. We appreciate his time and recommendations - Ultrasound is negative for DVT -- NSS 100 cc/hr > BERTRAM , POA resolved - Cr improved after fluid resuscitation - will continue to trend -- IV fluid hydration to prevent renal injury with vanc and zosyn > Increased urinary frequency, POA resolved - as per patient, he has been going to bathroom more often now - will get UA: neg - hba1c normal > Afib chronic stable - rate controlled - on warfarin , pharmacy to dose, appreciate management -- INR is 1.98 > CAD s/p CABG, chronic stable - continue home meds : beta ryland, TEREZA i, statins > HTN, chronic stable - on irbesartan 150 outpatient, converted to losartan 50 in patient - continue torsemide FEN: Cardiac diet Patient likely to stay > 2 midnights due to the disease process and complexity which may arise from it. Pain Evaluation: Adequate Pain Control VTE Prophylaxis: Other (on warfarin ) Resuscitation Status: DNR/DNI:Do Not Resuscitate/Intubate Time spent 25 min Dixie Castro DO Jun 17, 2017 05:14
[2017-06-17] MEDS: Polyethylene Glycol (PEG) 17 Gm Powder PO PRN (06:10)
[2017-06-17 06:58] LABS: BASOPHILS % (AUTO) 0.2 % (0-3); MONOCYTES % (AUTO) 14.8 % (4-12); Mean Corpuscular Hemoglobin 33.9 pg (27.0-35.0); NEUTROPHILS % (AUTO) 70.6 % (40-74); Platelet Count 160 bil/L (150-400)
[2017-06-17 07:10] LABS: INR 1.98 ratio
[2017-06-17 07:40] VITALS: BP 145/82; PULSE 72; RESP 18; O2SAT 98
[2017-06-17] MEDS: Vancomycin Dose per Pharmacist XX SCH (08:45)
[2017-06-17] MEDS ORDERED: Piper-Tazo 3.375 Gm/50 mL D5W Minibag Plus - Q8H over 4 hrs IV ONE ×2 (08:55)
[2017-06-17] MEDS ORDERED: Vancomycin Inj 1,500 MG in 0.9% Sodium Chloride 500 ML IV ONE ×2 (08:59→09:05)
--- NOTE | 2017-06-17 09:50 | NUR ---
Mobility/MRSA swab/left leg Pt able to use FWW and amb indep to BR, Steady on feet, c/o pain with movement Amb slow. MRSA swab sent to the lab. Left leg area of redness outlined Called wound care who came over to take a picture. Copies of photo sent to Dr Gonzalez and Dr Castro.
[2017-06-17] MEDS ORDERED: Piperacillin-Tazo 3.375 Gm Inj 3.375 GM in Dextrose 5% Minibag Plus 50 ML IV ONE (11:50)
[2017-06-17] MEDS: 0.9% Sodium Chloride 1,000 ML IV SCH ×2 (11:56→21:59)
[2017-06-17 16:45] VITALS: BP 131/80; PULSE 70; O2SAT 97
[2017-06-17] MEDS: Piperacillin-Tazo 3.375 Gm Inj 3.375 GM in Dextrose 5% Minibag Plus 50 ML IV SCH (17:48)
--- NOTE | 2017-06-17 18:23 | NUR ---
left leg/temp leg with minimal decrease in redness around th outlined borders. T 37.8, pt reported slight diaphoresis. CDB, PO fluid intake encouraged.
[2017-06-17] MEDS: LORazepam 0.5 mg Tablet PO PRN (21:59)
[2017-06-18] MEDS: Vancomycin Inj 1,500 MG in 0.9% Sodium Chloride 500 ML IV SCH ×2 (00:45→14:00)
[2017-06-18] MEDS: Piperacillin-Tazo 3.375 Gm Inj 3.375 GM in Dextrose 5% Minibag Plus 50 ML IV SCH ×4 (01:59→23:38)
[2017-06-18 02:56] VITALS: BP 152/86; PULSE 93; RESP 16; O2SAT 99
[2017-06-18] MEDS: 0.9% Sodium Chloride 1,000 ML IV SCH ×2 (06:18→17:26)
[2017-06-18] MEDS: Polyethylene Glycol (PEG) 17 Gm Powder PO PRN (06:32)
[2017-06-18] MEDS: HYDROcodone-APAP 5-325 mg Tablet PO PRN ×3 (06:32→22:06)
[2017-06-18 07:35] LABS: INR 1.89 ratio
[2017-06-18] MEDS: Vancomycin Dose per Pharmacist XX SCH (08:30)
[2017-06-18 09:15] VITALS: BP 164/95; PULSE 71; RESP 16; O2SAT 96
--- NOTE | 2017-06-18 11:22 | NUR ---
Social Work: Multidisciplinary Rounds / Readiness for d/c Data: Pt is on day 4 of hospitalization. Pt discussed in rounds. states pt currently on IVABX, anticipates likely that pt will d/c with POABX. No d/c planning needs at this time. PELT INSPECTOR will continue to follow if needs arise. Assessment: Pt who is independent at baseline, currently capable of self care. Plan: Pt will d/c home via POV when medically stable. PELT INSPECTOR will continue to follow for possible IVABX need at d/c. PELT INSPECTOR will continue to follow. JAVON Oseguera
[2017-06-18 17:45] VITALS: BP 161/84; PULSE 74; RESP 16; O2SAT 97
--- NOTE | 2017-06-18 20:24 | NUR ---
HS sleep med in late rounding to assess, added Vistaril for sleep @ HS and giving one time xtra dose of Cozaar for elevated BP Addendum: 06/18/17 at 2104 by REMEDIOS JAUREGUI RN Also request JAMARI SCHWAB take photo and forward to Dr Gonzalez!
--- NOTE | 2017-06-18 20:56 | PCM.PNMED ---
Subjective Date of Service Jun 18, 2017 Subjective Patient is seen and examined. He feels that his pain is improving as well as his swelling. Is wanting to know if he could go home tomorrow as he needs to take care of his at home. No other concerns Exam Vital Signs Vital Sign - Last Date Time Temp Pulse Resp B/P Pulse Ox O2 Delivery O2 Flow Rate FiO2 06/18/17 02:56 36.8 93 16 152/86 99 Room Air Intake and Output 06/17/17 06/17/17 06/18/17 Cumulative From/Thru 15:00 23:00 07:00 06/14/17 11:16 - 06/18/17 06:27 Intake Total 2215 ml 1523 ml 9388 ml Output Total 50 ml 550 ml 850 ml 3475 ml Balance -50 ml 1665 ml 673 ml 5913 ml Intake Oral 1440 ml 360 ml 6195 ml IV Total 775 ml 1163 ml 3193 ml Output Urine Total 50 ml 550 ml 850 ml 3475 ml # Voids 28 # Bowel Movements 0 0 Exam Gen.: No acute distress HEENT: Normocephalic, atraumatic Heart: Regular rate and rhythm no S3-S4 murmurs Lungs: Clear to auscultation no crackles or wheezes Neck: Negative for JVD and trachea is midline Abdomen nondistended Extremities: Reduced strength in the left lower extremity. Skin: Erythema has improved, as well as swelling. Redness is now under demarcated area no longer spreading proximally infected not seen in his medial thigh Neurological: No focal deficits Psychiatric: Negative for anxiety IVs and Medications IV Fluids Normal saline 100 mL per hour Medications Reviewed: Medications were reviewed in detail Lab and Diagnostics Laboratory Tests Test 06/18/17 06:25 Erythrocyte Sedimentation Rate 45mm/hr (0-30) Prothrombin Time 20.5sec (8.1-12.5) Prothromb Time International Ratio 1.89ratio Sodium Level 136mEq/L (134-144) Potassium Level 3.7mEq/L (3.5-5.2) Chloride Level 98mEq/L (97-108) Carbon Dioxide Level 25mmol/L (18-29) Blood Urea Nitrogen 18mg/dL (8-27) Creatinine 1.00mg/dL (0.76-1.27) Estimat Glomerular Filtration Rate 79mL/min (>59) Glucose Level 116mg/dL (60-99) Calcium Level 8.5mg/dL (8.5-10.1) Total Bilirubin 1.3mg/dL (0.0-1.2) Aspartate Amino Transf (AST/SGOT) 21U/L (0-50) Alanine Aminotransferase (ALT/SGPT) 17U/L (0-44) Alkaline Phosphatase 58U/L (25-160) C-Reactive Protein 20.4mg/dL (0.0-0.5) Total Protein 5.9g/dL (6.4-8.4) Albumin 3.3g/dL (3.4-5.0) Procalcitonin 1.93ng/mL (0.00-0.08) Microbiology 06/17/17 Blood Culture - Preliminary, Resulted NO GROWTH AFTER 24 HOURS 06/17/17 MRSA (PCR) - Final, Complete Laboratory Tests Test 06/18/17 06:25 Erythrocyte Sedimentation Rate 45mm/hr (0-30) Prothrombin Time 20.5sec (8.1-12.5) Prothromb Time International Ratio 1.89ratio Sodium Level 136mEq/L (134-144) Potassium Level 3.7mEq/L (3.5-5.2) Chloride Level 98mEq/L (97-108) Carbon Dioxide Level 25mmol/L (18-29) Blood Urea Nitrogen 18mg/dL (8-27) Creatinine 1.00mg/dL (0.76-1.27) Estimat Glomerular Filtration Rate 79mL/min (>59) Glucose Level 116mg/dL (60-99) Calcium Level 8.5mg/dL (8.5-10.1) Total Bilirubin 1.3mg/dL (0.0-1.2) Aspartate Amino Transf (AST/SGOT) 21U/L (0-50) Alanine Aminotransferase (ALT/SGPT) 17U/L (0-44) Alkaline Phosphatase 58U/L (25-160) C-Reactive Protein 20.4mg/dL (0.0-0.5) Total Protein 5.9g/dL (6.4-8.4) Albumin 3.3g/dL (3.4-5.0) Procalcitonin 1.93ng/mL (0.00-0.08) Microbiology 06/17/17 Blood Culture - Preliminary, Resulted NO GROWTH AFTER 24 HOURS 06/17/17 MRSA (PCR) - Final, Complete Result Diagram: 06/17/1760406/17/17 06 Microbiology EDUARDO CULTURE BLOOD Preliminary 06/14/17-0715 Organism 1 BETA STREPTOCOCCUS GROUP G SENSITIVITY COMMENTS Susceptibilty testing to follow. X2 Assessment & Plan Patient is a 67 yo male with pmh of afib (on coumadin), HTN, CAD (s/p CABG), Hypercholestrolemia, who is being admitted for cellulitis complicated with bacteremia and pyomyositis >Bacteremia secondary to cellulitis and pyomyositis with beta strep group G infection, POA active - MRI of LE showd no abscesses, did show pyomyositis of peroneal muscle --Blood cultures X 2 positive group G strep, as per case studies skin is the most common source, which fits in with patient's presentation of cellulitis - PCT - 22.86--> 11-->2.97--> trending down - Broadened antibiotics to vanc + zosyn, after repeating the blood cx. [facility] recommendation for pyomyositis is this combination - repeat blood cultures, no growth today - tylenol for pain, [place] for pain - ESR, CRP slightly elevated from yesterday ESR 38->45 CRP is 10.6->20.4 . Calcitonin down from 2.97->1.93, likely 2/2 to ongoing infection, - Discussed case with Dr. Malik Rabago, who advised that at this time based on his MRI as there is no concern for abscess or necrotizing fasciitis, general surgery consult is not called for. We appreciate his time. -- Discussed case with Dr. Gonzalez over the phone, who recommended MRSA nasal swab ordered and was negative), ASO titers, pro-calcitonin. He feels patient can stay on Vanco and Zosyn. Asked wound care to take a picture of patient's leg after obtaining patient's consent, and sent to Dr. Gonzalez. Dr. Gonzalez has received a picture and reviewed it. We appreciate his time and recommendations. On 06/18, Once again asked wound care to send a picture of follow-up cellulitis to Dr. Gonzalez - Ultrasound is negative for DVT --Discontinued IV fluids --f/u blood cultures are negative to date -- Plan to touch base with Dr. Gonzalez tomorrow a.m. > HTN, chronic stable - on irbesartan 150 outpatient, converted to losartan 50 in patient - continue torsemide -- Give him a one-time extra dose of losartan in the evening 25 mg > Afib chronic stable - rate controlled - on warfarin , pharmacy to dose, appreciate management -- INR is 1.89 > CAD s/p CABG, chronic stable - continue home meds : beta ryland, TEREZA i, statins > BERTRAM , POA resolved - Cr improved after fluid resuscitation - will continue to trend > Increased urinary frequency, POA resolved - will get UA: neg - hba1c normal FEN: Cardiac diet Patient likely to stay > 2 midnights due to the disease process and complexity which may arise from it. Pain Evaluation: Adequate Pain Control VTE Prophylaxis: Other (on warfarin ) Resuscitation Status: DNR/DNI:Do Not Resuscitate/Intubate Time spent 25 minutes Dixie Castro DO Jun 18, 2017 07:12
[2017-06-18] MEDS: hydrOXYzine Pamoate 25 mg Capsule PO PRN (22:06)
[2017-06-18] MEDS ORDERED: Vancomycin Serum Trough XX ONE (23:30)
[2017-06-19 00:56] VITALS: BP 150/84; PULSE 68; RESP 19; O2SAT 98
[2017-06-19] MEDS: Vancomycin Inj 1,500 MG in 0.9% Sodium Chloride 500 ML IV SCH (02:38)
--- NOTE | 2017-06-19 03:41 | PCM.PHAPRO ---
Progress Date of Service: Jun 19, 2017 Requesting Provider: Dixie Castro DO suspected bacteremia a/ - 67 y/o male patient is on day 2 of Vancomycin (1500mg iv q12) and Zosyn for suspected bacteremia - Blood cultures showed positive for Strep, no growth>24hrs, and MRSA (PCR) is negative - Dr. Gonzalez, ID specialist, is reviewing the results of cultures and labs , but at this time, recommended to keep Vancomycin and Zosyn until otherwise determined - Trough level came back @14 p/ - Will continue with current regimen. Daytime pharmacist will follow up with Dr. Gonzalez and provider team in the morning. Thank you Viral Dutton Jun 19, 2017 03:41
[2017-06-19 06:27] VITALS: BP 152/80; PULSE 76; RESP 18; O2SAT 98
[2017-06-19 06:50] LABS: INR 1.97 ratio
[2017-06-19] MEDS: Piperacillin-Tazo 3.375 Gm Inj 3.375 GM in Dextrose 5% Minibag Plus 50 ML IV SCH (07:52)
[2017-06-19] MEDS: HYDROcodone-APAP 5-325 mg Tablet PO PRN (08:04)
[2017-06-19 11:37] VITALS: BP 136/86; PULSE 65; RESP 16; O2SAT 99
[2017-06-19] MEDS: cefTRIAXone Inj 2,000 MG in Dextrose 5% Minibag Plus 50 ML IV SCH (11:38)
--- NOTE | 2017-06-19 11:48 | NUR ---
Social Work- Multidisciplinary Rounds Pt discussed in rounds. Pt is likely to discharge today on PO abx, potentially. No orders received yet. Pt to transport home via POV. SW will continue to follow. JAVON Martinez
--- NOTE | 2017-06-19 14:26 | PCM.PNMED ---
Subjective Date of Service Jun 19, 2017 Subjective Last night patient spoke of wanting to go home, this a.m. he says his Leg more swollen, and tender. He agrees that the erythema has improved, however. Exam Vital Signs Vital Sign - Last Date Time Temp Pulse Resp B/P Pulse Ox O2 Delivery O2 Flow Rate FiO2 06/19/17 11:37 36.7 65 16 136/86 99 Room Air Intake and Output 06/18/17 06/18/17 06/19/17 Cumulative From/Thru 15:00 23:00 07:00 06/14/17 11:16 - 06/19/17 06:28 Intake Total 759 ml 1448 ml 1626 ml 56750 ml Output Total 1850 ml 650 ml 5975 ml Balance 759 ml -402 ml 976 ml 7246 ml Intake Oral 600 ml 600 ml 7395 ml IV Total 759 ml 848 ml 1026 ml 5826 ml Output Urine Total 1850 ml 650 ml 5975 ml # Voids 2 30 # Bowel Movements 1 1 Exam Gen.: Mildly distress laying in bed HEENT: Normocephalic, atraumatic Heart: Faint systolic murmur, irregular heart rhythm Lungs: Clear to auscultation no crackles or wheezes Abdomen: Obese nondistended Extremities: Left lower extremity appears to be improved in terms of erythema, but the swelling has not gone down in fact it appears worse today. Palpable cyst below the popliteal area on the left side. Left ankle also appears more swollen. Ankle has 1+ pitting edema. Neuro: No focal deficits Psychiatric: No agitation IVs and Medications IV Fluids Discontinued Medications Reviewed: Medications were reviewed in detail Lab and Diagnostics Result Diagram: 06/19/17 0555 06/18/17 0625 Microbiology EDUARDO CULTURE BLOOD Preliminary 06/14/17-0715 Organism 1 BETA STREPTOCOCCUS GROUP G SENSITIVITY COMMENTS Susceptibilty testing to follow. X2 Assessment & Plan Patient is a 67 yo male with pmh of afib (on coumadin), HTN, CAD (s/p CABG), Hypercholestrolemia, who is being admitted for cellulitis complicated with bacteremia and pyomyositis >Bacteremia secondary to cellulitis and pyomyositis with beta strep group G infection, POA active - MRI of LE showd no abscesses, did show pyomyositis of peroneal muscle -- Initial Blood cultures X 2 positive group G strep, as per case studies skin is the most common source, which fits in with patient's presentation of cellulitis - Broadened antibiotics to vanc + zosyn, after repeating the blood cx. [facility] recommendation for pyomyositis is this combination, switching back to just ceftriaxone after talking to Dr. Gonzalez on the 06/18 to avoid nephrotoxicity - repeat blood cultures, showed no growth todate - tylenol for pain, oxycodone for pain ( it appears that he is having worsened blood pressure from lack of pain control) - ESR, CRP slightly elevated from yesterday ESR 38->45-->51 CRP is 10.6->20.4--> 15 . Calcitonin down from 2.97->1.93-->1.19, likely 2/2 to ongoing infection, - Discussed case with Dr. Mo Rabago, who advised that at this time based on his MRI as there is no concern for abscess or necrotizing fasciitis, general surgery consult is not called for. We appreciate his time. -- Discussed case with Dr. Gonzalez over the phone, who recommended MRSA nasal swab ordered and was negative), ASO titers, which are negative. Asked wound care to take a picture of patient's leg after obtaining patient's consent, and sent to Dr. Gonzalez. Dr. Gonzalez has received a picture and reviewed it. We appreciate his time and recommendations. All antibiotics changes were discussed with Dr. Gonzalez so for. On 06/18, Once again asked wound care to send a picture of follow-up cellulitis to . - At the time of admission Ultrasound is negative for DVT --Discontinued IV fluids --f/u blood cultures are negative to date -- Discussed case with Dr. Gonzalez on 06/19, he feels that infection may just be improving but because of the severty, it may be taking time. Plan to touch base with Dr. Gonzalez tomorrow a.m. -- Repeat DVT ultrasound 06/19 > HTN, chronic stable -Increase losartan to 75 mg daily, blood pressure was poorly controlled on home dose - continue torsemide > Afib chronic stable - rate controlled - on warfarin , pharmacy to dose, appreciate management -- INR is 1.97 > CAD s/p CABG, chronic stable - continue home meds : beta ryland, TEREZA i, statins > BERTRAM , POA resolved - Cr improved after fluid resuscitation - will continue to trend > Increased urinary frequency, POA resolved - will get UA: neg - hba1c normal FEN: Cardiac diet Patient likely to stay > 2 midnights due to the disease process and complexity which may arise from it. Disposition: Discharged to home in 1-2 days Pain Evaluation: Pain not Controlled VTE Prophylaxis: Other (on warfarin ) Resuscitation Status: DNR/DNI:Do Not Resuscitate/Intubate Time spent 30 minutes Dixie Castro DO Jun 19, 2017 14:25
[2017-06-19 19:04] VITALS: BP 164/90; PULSE 76; RESP 18; O2SAT 99
--- NOTE | 2017-06-19 19:38 | NUR ---
LLE U/S Patient had u/s of LLE per tech no dvt , no visible masses or occlusions patient feels swelling in back of leg resolved.
--- NOTE | 2017-06-19 19:50 | DRSVH ---
PROCEDURE: US VEINOUS LEG DUPLEX UNILATERAL, LEFT INDICATIONS: dvt/popliteal cyst/swlling concern TECHNIQUE: Real-time imaging, as well as color and pulse Doppler interrogation, were performed of the lower extr emity deep veins from the inguinal ligament to the popliteal fossa. COMPARISON: None. FINDINGS: The deep veins are normally compressible, and free of intraluminal thrombus. Color and pu lse Doppler demonstrate normal phasic intraluminal flow. There is normal augmentation response to di stal compression maneuver. No fluid collection demonstrated in the popliteal fossa. IMPRESSION: 1. No evidence of deep venous thrombosis in the left lower extremity. Dictated by: Nehemias Saleh M.D. on 06/19/2017 at 19:48 Approved by: Nehemias Saleh M.D. on 06/19/2017 at 19:49
[2017-06-19] MEDS: hydrOXYzine Pamoate 25 mg Capsule PO PRN (23:26)
[2017-06-20] VITALS (7 sets, daily range): BP systolic 154–182; BP diastolic 79–104; PULSE 8–86; RESP 17–18; O2SAT 96–99
--- NOTE | 2017-06-20 06:40 | NUR ---
Low grade fever Spiked low grade fever this stated he felt a little sweaty too this kirsty
[2017-06-20 07:39] LABS: INR 1.94 ratio
[2017-06-20] MEDS: cefTRIAXone Inj 2,000 MG in Dextrose 5% Minibag Plus 50 ML IV SCH ×2 (08:40→21:18)
--- NOTE | 2017-06-20 09:14 | NUR ---
Mobility/pain pt reports left leg feels slightly less warm. At the bottom portion of my leg it feels like there is a ring that squeezes. rx given per request. Pain present, especially when dangling or with ambulation. Indep with FWW to BR, slow pace.
--- NOTE | 2017-06-20 10:50 | PCM.PHAPRO ---
Progress Date of Service: Jun 20, 2017 Requesting Provider: Dixie Castro DO suspected bacteremia, 2/2 cellulitis Anticoagulation management for atrial fibrillation A/ - Day 8: inpatient on Warfarin for a.fib prophy date 06/13 06/14 06/15 06/16 06/17 06/18 06/19 06/20 INR 1.19 1.15 1.46 1.98 1.89 1.97 1.97 1.94 Dose(mg) 5 5 7.5 5 5 6 6 7 - Patient had low grade fever overnight, and persisted pain from the wound. Consumed 60% meals, minimal ambulating. No s/s of bruise/bleeding. DVT ruled out P/ - Give warfarin 7mg tonight. Pharmacy will monitor and dose daily Thank you Viral Dutton Jun 20, 2017 10:50
--- NOTE | 2017-06-20 16:34 | NUR ---
Inpatient Wound Nurse Patient was seen yesterday afternoon at request of [facility] [place] for photos. CWON took photos and these were sent to Dr. Gonzalez by Wound Center staff this morning. No further inpatient wound care identified at this time.
--- NOTE | 2017-06-20 17:41 | NUR ---
YOANNA signed at [id number]
--- NOTE | 2017-06-20 18:26 | NUR ---
PO intake, pain, mobility, LLE Pt not interested in anything on the menu, reports not hungry. drinking plenty of water pain controlled with elevation and oxycodone. pt indep ambulation with FWW to BR. steady on feet, slow due to pain LLE redness waxes and wanes, warm to touch cont with abx
--- NOTE | 2017-06-20 22:29 | PCM.PNMED ---
Subjective Date of Service Jun 20, 2017 Subjective Patient is seen and examined. Severely discolored and appears slightly improved at about the same from yesterday but the swelling persists, he is endorsing pain because of swelling with walking. He has had slight temperatures today given the maximum 38 Celsius. Explained to him that he cannot be discharged home until he is afebrile for 24-48 hours Exam Vital Signs Vital Sign - Last Date Time Temp Pulse Resp B/P Pulse Ox O2 Delivery O2 Flow Rate FiO2 06/20/17 21:30 37.6 78 17 182/104 99 Room Air Intake and Output 06/19/17 06/19/17 06/20/17 Cumulative From/Thru 15:00 23:00 07:00 06/14/17 11:16 - 06/20/17 06:24 Intake Total 800 ml 1561 ml 1400 ml 78540 ml Output Total 1950 ml 500 ml 8425 ml Balance 800 ml -389 ml 900 ml 8557 ml Intake Oral 800 ml 1350 ml 1400 ml 92732 ml IV Total 211 ml 6037 ml Output Urine Total 1950 ml 500 ml 8425 ml # Voids 30 # Bowel Movements 1 Exam Gen.: Appears mildly distressed HEENT: Normocephalic, atraumatic Extremities: Noted swelling left lower extremity erythema seems to be descending Neuro: No altered sensation psych: No agitation Neck: Negative JVD, trachea central Respiratory: No increased work of breathing Skin: Warm, warmer left lower extremity IVs and Medications IV Fluids None Medications Reviewed: Medications were reviewed in detail Lab and Diagnostics Result Diagram: 06/20/17 0656 06/18/17 0625 Microbiology EDUARDO CULTURE BLOOD Preliminary 06/14/17-0715 Organism 1 BETA STREPTOCOCCUS GROUP G SENSITIVITY COMMENTS Susceptibilty testing to follow. X2 Assessment & Plan Patient is a 67 yo male with pmh of afib (on coumadin), HTN, CAD (s/p CABG), Hypercholestrolemia, who is being admitted for cellulitis complicated with bacteremia and pyomyositis >Bacteremia secondary to cellulitis and pyomyositis with beta strep group G infection, POA active - MRI of LE showd no abscesses, did show pyomyositis of peroneal muscle -- Initial Blood cultures X 2 positive group G strep, as per case studies skin is the most common source, which fits in with patient's presentation of cellulitis - Broadened antibiotics to vanc + zosyn, after repeating the blood cx. [facility] recommendation for pyomyositis is this combination, switching back to just ceftriaxone after talking to Dr. Gonzalez on the 06/18 to avoid nephrotoxicity - repeat blood cultures, showed no growth todate - tylenol for pain, oxycodone for pain ( it appears that he is having worsened blood pressure from lack of pain control) - ESR, CRP slightly elevated from yesterday ESR 38->45-->51 CRP is 10.6->20.4--> 15 . ESR and CRP seems to be leveling off . Calcitonin down from 2.97->1.93--> 1.19, likely 2/2 to ongoing infection, - Discussed case with Dr. Mo Rabago, who advised that at this time based on his MRI as there is no concern for abscess or necrotizing fasciitis, general surgery consult is not called for. We appreciate his time. -- Discussed case with Dr. Gonzalez over the phone, who recommended MRSA nasal swab ordered and was negative), ASO titers, which are negative. Asked wound care to take a picture of patient's leg after obtaining patient's consent, and sent to Dr. Gonzalez. Dr. Gonzalez has received a picture and reviewed it. We appreciate his time and recommendations. All antibiotics changes were discussed with Dr. Gonzalez so for. On 06/18, Once again asked wound care to send a picture of follow-up cellulitis to . - At the time of admission Ultrasound is negative for DVT --Discontinued IV fluids --f/u blood cultures are negative to date -- Discussed case with Dr. Gonzalez on 06/19, he feels that infection may just be improving but because of the severty, it may be taking time. Plan to touch base with Dr. Gonzalez tomorrow a.m. -- Repeat DVT ultrasound 06/19: Negative for DVT -- Discussed case curbside Dr. Grey, recommends elevating the leg, increasing the dose of ceftriaxone to 2 g twice a day to facilitate better absorption at the wound site. Appreciate his recommendation -06/20. Repeat Blood cultures were done due to temperature of 100.4 > HTN, chronic stable -Increase losartan to 100 mg daily, blood pressure was poorly controlled on home dose - continue torsemide > Afib chronic stable - rate controlled - on warfarin , pharmacy to dose, appreciate management -- INR is 1.94 > CAD s/p CABG, chronic stable - continue home meds : beta ryland, TEREZA i, statins > BERTRAM , POA resolved - Cr improved after fluid resuscitation - will continue to trend > Increased urinary frequency, POA resolved - will get UA: neg - hba1c normal FEN: Cardiac diet Patient likely to stay > 2 midnights due to the disease process and complexity which may arise from it. Disposition: Discharged to home in 1-2 days Pain Evaluation: Adequate Pain Control VTE Prophylaxis: Other (on warfarin ) Resuscitation Status: DNR/DNI:Do Not Resuscitate/Intubate Time spent 25 minutes Dixie Castro DO Jun 20, 2017 22:29
[2017-06-21 06:04] VITALS: BP 164/87; PULSE 92; RESP 17; O2SAT 98
--- NOTE | 2017-06-21 06:19 | NUR ---
Shift Note assumed pt care at 1900, pt continues with intermittent IV ABO, additional blood cultures drawn, pending, pt afebrile tonight, LLE pain managed with PRN po oxycodone, with reports of relief, call light in reach at all times.
[2017-06-21 06:29] LABS: INR 2.04 ratio
[2017-06-21 09:35] VITALS: BP 143/73; PULSE 109; RESP 16; O2SAT 99
[2017-06-21] MEDS: cefTRIAXone Inj 2,000 MG in Dextrose 5% Minibag Plus 50 ML IV SCH ×2 (09:39→20:06)
--- NOTE | 2017-06-21 11:59 | PCM.PNMED ---
Subjective Date of Service Jun 21, 2017 Subjective pt denied pain, thinks that erythema and swelling improved concerned about his bp and his who needs care, stated that currently his daughter is taking care of her had another fever 38.0 at 5pm yesterday ceftriaxone 2g q12h continued pt is more interested in iv abx given at the hospital rather than home infusion Exam Vital Signs Vital Sign - Last Date Time Temp Pulse Resp B/P Pulse Ox O2 Delivery O2 Flow Rate FiO2 06/21/17 06:04 37.3 92 17 164/87 98 Room Air Intake and Output 06/20/17 06/20/17 06/21/17 Cumulative From/Thru 15:00 23:00 07:00 06/14/17 11:16 - 06/21/17 06:04 Intake Total 300 ml 1250 ml 805 ml 75064 ml Output Total 250 ml 800 ml 1100 ml 39487 ml Balance 50 ml 450 ml -295 ml 8762 ml Intake Oral 300 ml 1200 ml 750 ml 70911 ml IV Total 50 ml 55 ml 6142 ml Output Urine Total 250 ml 800 ml 1100 ml 65697 ml # Voids 1 1 32 # Bowel Movements 0 1 Exam NAD RRR nl s1 s2 no mrg CTAB no w,c S,ND,NT,BS+ diffuse erythema on LLE below knee, swelling, tender, no opened ulcer IVs and Medications Medications Reviewed: Medications were reviewed in detail Lab and Diagnostics Result Diagram: 06/21/17 0606/21/17 06 Microbiology EDUARDO CULTURE BLOOD Preliminary 06/14/17-0715 Organism 1 BETA STREPTOCOCCUS GROUP G SENSITIVITY COMMENTS Susceptibilty testing to follow. X2 Assessment & Plan Patient is a 67 yo male with pmh of afib (on coumadin), HTN, CAD (s/p CABG), Hypercholestrolemia, who is being admitted for cellulitis complicated with bacteremia and pyomyositis acute, active >Bacteremia secondary to cellulitis and pyomyositis on LLE with beta strep group G infection, POA. MRI of LLE showd no abscesses, did show pyomyositis of peroneal muscle. Initial Blood cultures on 06/13 X 2 positive group G strep, as per case studies skin is the most common source, which fits in with patient's presentation of cellulitis. pt was broadened antibiotics to vanc + zosyn, after repeating the blood cx. then switching back to just ceftriaxone after talking to Dr. Gonzalez on the 06/18 to avoid nephrotoxicity per . Repeat serial blood cultures, showed no growth todate. DVT studies negative on . -pt was febrile again, but HD stable, clinically slowly improving -will continue Rocephin 2g q12h for now. -ID consult on Friday when is back for likely iv abx for 4weeks upon d/c -will consider offical surgical consult if clinically worsens chronic, stable > HTN, remain uncontrolled, increase losartan to 100 mg daily, continue torsemide, will consider adding third agent > Afib rate controlled, on warfarin , pharmacy to dose, appreciate management > CAD s/p CABG, continue home meds : beta ryland, TEREZA i, statins > BERTRAM , POA resolved with fluid resuscitation > Increased urinary frequency, POA UA: neg, resolved FEN: Cardiac diet Disposition: Discharged to home, likely 2-3more days VTE Prophylaxis: Other (on warfarin ) Resuscitation Status: DNR/DNI:Do Not Resuscitate/Intubate Time spent 35min Avi Gray MD Jun 21, 2017 08:13
[2017-06-21 17:20] VITALS: BP 135/86; PULSE 77; RESP 18; O2SAT 97
--- NOTE | 2017-06-21 17:30 | NUR ---
Temp/Left leg notified of T of 101.8 via text. Request made for tylenol Awaiting new orders 1819 T 100.8. This afternoon left leg increase redness, especially outside ankle region.
[2017-06-21 19:18] VITALS: BP 146/85; PULSE 79; RESP 16; O2SAT 99
[2017-06-22 06:21] VITALS: BP 177/91; PULSE 82; RESP 18; O2SAT 95
[2017-06-22 08:02] LABS: BASOPHILS % (AUTO) 0.3 % (0-3); EOSINOPHILS % (AUTO) 1.8 % (0-5); MONOCYTES % (AUTO) 11.6 % (4-12); Mean Corpuscular Hemoglobin 33.3 pg (27.0-35.0); Mean Corpuscular Volume 99.1 fL (81-100); NEUTROPHILS % (AUTO) 74.2 % (40-74); Platelet Count 339 bil/L (150-400)
--- NOTE | 2017-06-22 08:15 | NUR ---
Social Work-readiness for discharge: Data:EMR Reviewed. Pt is on day 8 of hospitalization for strep bacteremia per H&P. Pt is not medically stable anticipate 1-2 more days. Pt to likely discharge on oral abx at discharge. Pt has been up independent in his room. No anticipated discharge needs. SW will continue to follow if needs arise. Assessment:Pt who is independent at baseline. Plan:Pt to discharge home when medically stable via POV. No anticipated discharge needs. SW will continue to follow if needs arise. JAVON Solomon
[2017-06-22 08:24] LABS: INR 2.1 ratio
[2017-06-22] MEDS: cefTRIAXone Inj 2,000 MG in Dextrose 5% Minibag Plus 50 ML IV SCH ×2 (08:45→20:28)
--- NOTE | 2017-06-22 09:00 | NUR ---
YOANNA signed. JAVON Solomon
--- NOTE | 2017-06-22 10:11 | PCM.PNMED ---
Subjective Date of Service Jun 22, 2017 Subjective pt had temp38.8 again, but clinically stable, serial BCX remained negative, PCT trending down Exam Vital Signs Vital Sign - Last Date Time Temp Pulse Resp B/P Pulse Ox O2 Delivery O2 Flow Rate FiO2 06/22/17 06:21 37.3 82 18 177/91 95 Room Air Intake and Output 06/21/17 06/21/17 06/22/17 Cumulative From/Thru 15:00 23:00 07:00 06/14/17 11:16 - 06/22/17 06:58 Intake Total 271 ml 600 ml 805 ml 90447 ml Output Total 500 ml 200 ml 400 ml 13706 ml Balance -229 ml 400 ml 405 ml 9338 ml Intake Oral 200 ml 600 ml 750 ml 99565 ml IV Total 71 ml 55 ml 6268 ml Output Urine Total 500 ml 200 ml 400 ml 17489 ml # Voids 32 # Bowel Movements 0 1 Exam NAD RRR nl s1 s2 no mrg CTAB no w,c S,ND,NT,BS+ diffuse erythema on LLE below knee, swelling, tender, no opened ulcer IVs and Medications Medications Reviewed: Medications were reviewed in detail Lab and Diagnostics Result Diagram: 06/22/1771906/22/17719 Microbiology EDUARDO CULTURE BLOOD Preliminary 06/14/17-714 Organism 1 BETA STREPTOCOCCUS GROUP G SENSITIVITY COMMENTS Susceptibilty testing to follow. X2 Assessment & Plan Patient is a 67 yo male with pmh of afib (on coumadin), HTN, CAD (s/p CABG), Hypercholestrolemia, who is being admitted for cellulitis complicated with bacteremia and pyomyositis acute, active >Bacteremia secondary to cellulitis and pyomyositis on LLE with beta strep group G infection, POA. MRI of LLE showd no abscesses, did show pyomyositis of peroneal muscle. Initial Blood cultures on 06/13 X 2 positive group G strep, as per case studies skin is the most common source, which fits in with patient's presentation of cellulitis. pt was broadened antibiotics to vanc + zosyn, after repeating the blood cx. then switching back to just ceftriaxone after talking to Dr. Gonzalez on the 06/18 to avoid nephrotoxicity per . Repeat serial blood cultures, showed no growth todate. DVT studies negative on . -pt was febrile again, but HD stable, clinically improving -will continue Rocephin 2g q12h for now. -ID consult on Friday when is back for likely iv abx for 4weeks upon d/c -will consider offical surgical consult if clinically worsens -get TTE to r/o endocarditis although source seemed obvious. -awaits serial BCX chronic, stable > HTN, remain uncontrolled, increase losartan to 100 mg daily, continue torsemide, will consider adding third agent > Afib rate controlled, on warfarin , pharmacy to dose, appreciate management > CAD s/p CABG, continue home meds : beta ryland, TEREZA i, statins > BERTRAM , POA resolved with fluid resuscitation > Increased urinary frequency, POA UA: neg, resolved FEN: Cardiac diet Disposition: Discharged to home, likely 2-3more days VTE Prophylaxis: Other (on warfarin ) Resuscitation Status: DNR/DNI:Do Not Resuscitate/Intubate Time spent 35min Avi Gray MD Jun 22, 2017 10:11
[2017-06-22 16:00] VITALS: BP 133/75; PULSE 86; RESP 20; O2SAT 97
--- NOTE | 2017-06-22 17:49 | NUR ---
Concern Patient verbalized concerns of length of stay, able to express some frustrations and understood his plan of care. Will be referred to ID in the morning for further management and discharge disposition. Afebrile this shift. Pain managed by elevation and tylenol tablet for headache. Will continue to monitor.
[2017-06-22 21:39] VITALS: BP 157/82; PULSE 69; RESP 16; O2SAT 99
[2017-06-23 04:52] VITALS: PULSE 78; RESP 16; O2SAT 100
[2017-06-23 05:21] VITALS: BP 158/88
--- NOTE | 2017-06-23 05:59 | NUR ---
Shift Note assumed pt care at 1900, pt continues with intermittent IV ABO, pending Inf.disease consult in am, LLE pain managed with PO APAP and Oxy with adequate relief per pt report.
[2017-06-23 06:34] LABS: BASOPHILS % (AUTO) 0.6 % (0-3); EOSINOPHILS % (AUTO) 2.5 % (0-5); MONOCYTES % (AUTO) 11.7 % (4-12); Mean Corpuscular Hemoglobin 32.6 pg (27.0-35.0); NEUTROPHILS % (AUTO) 72.3 % (40-74); Platelet Count 383 bil/L (150-400)
[2017-06-23 07:07] LABS: Magnesium 1.8 mg/dL (1.6-2.6); Phosphorus 3.2 mg/dL (2.5-4.9)
[2017-06-23 07:30] LABS: INR 2.33 ratio
[2017-06-23 07:45] VITALS: BP 139/80; PULSE 84; RESP 16; O2SAT 99
[2017-06-23] MEDS: cefTRIAXone Inj 2,000 MG in Dextrose 5% Minibag Plus 50 ML IV SCH (07:54)
--- NOTE | 2017-06-23 07:56 | PCM.PHAPRO ---
Progress Date of Service: Jun 23, 2017 Warfarin dosing Date Jun 15-Jun 16-Jun 17-Jun 17-Jun 18-Jun 19-Jun 20-Jun 21-Jun 22-Jun 23- May INR 1.19 1.15 1.46 1.98 1.89 1.97 1.97 1.94 2.04 2.10 2.33 INR change -0.04 0.31 0.52 -0.09 0.08 -0.03 0.1 0.06 0.23 Warf Dose 5MG 5MG 7.5MG 5MG 5MG 6 MG 6MG 7mg 7 7 7mg Lisa Peguero PharmD Jun 23, 2017 07:56
[2017-06-23] MEDS ORDERED: Potassium Chloride 20 mEq SR Tablet PO ONE (08:10)
--- NOTE | 2017-06-23 08:34 | PCM.PNMED ---
Subjective Date of Service Jun 23, 2017 Subjective pt remained afebrile, edema, redness improving but vacuum pan tender, warm waits ID eval for regimen. Exam Vital Signs Vital Sign - Last Date Time Temp Pulse Resp B/P Pulse Ox O2 Delivery O2 Flow Rate FiO2 06/23/17 05:21 158/88 06/23/17 04:52 37.3 78 16 100 Room Air Intake and Output 06/22/17 06/22/17 06/23/17 Cumulative From/Thru 15:00 23:00 07:00 06/14/17 11:16 - 06/22/17 21:39 Intake Total 1590 ml 16951 ml Output Total 84030 ml Balance 1590 ml 26199 ml Intake Oral 1520 ml 04686 ml IV Total 70 ml 6338 ml Output Urine Total 23032 ml # Voids 5 37 # Bowel Movements 1 2 Exam NAD RRR nl s1 s2 no mrg CTAB no w,c S,ND,NT,BS+ diffuse erythema on LLE below knee, swelling, tender, no opened ulcer IVs and Medications Medications Reviewed: Medications were reviewed in detail Lab and Diagnostics Result Diagram: 06/23/1755406/23/17 0555 Microbiology EDUARDO CULTURE BLOOD Preliminary 06/14/17-0715 Organism 1 BETA STREPTOCOCCUS GROUP G SENSITIVITY COMMENTS Susceptibilty testing to follow. X2 Assessment & Plan Patient is a 67 yo male with pmh of afib (on coumadin), HTN, CAD (s/p CABG), Hypercholestrolemia, who is being admitted for cellulitis complicated with bacteremia and pyomyositis acute, active >Bacteremia secondary to cellulitis and pyomyositis on LLE with beta strep group G infection, POA. MRI of LLE showd no abscesses, did show pyomyositis of peroneal muscle. Initial Blood cultures on 06/13 X 2 positive group G strep, as per case studies skin is the most common source, which fits in with patient's presentation of cellulitis. pt was broadened antibiotics to vanc + zosyn, after repeating the blood cx. then switching back to just ceftriaxone after talking to Dr. Gonzalez on the 06/18 to avoid nephrotoxicity per . Repeat serial blood cultures, showed no growth todate. DVT studies negative on . -pt was febrile again, but HD stable, clinically improving -will continue Rocephin 2g q12h for now. -awaits ID consult likely iv abx for 4weeks upon d/c -will consider offical surgical consult if clinically worsens -get TTE to r/o endocarditis although source seemed obvious. -awaits serial BCX so far ngtd chronic, stable > HTN, remain uncontrolled, increase losartan to 100 mg daily, continue torsemide, will consider adding third agent > Afib rate controlled, on warfarin , pharmacy to dose, appreciate management > CAD s/p CABG, continue home meds : beta ryland, TEREZA i, statins > BERTRAM , POA resolved with fluid resuscitation > Increased urinary frequency, POA UA: neg, resolved FEN: Cardiac diet Disposition: Discharged to home, likely 2-3 days VTE Prophylaxis: Other (on warfarin ) Resuscitation Status: DNR/DNI:Do Not Resuscitate/Intubate Time spent 35min Avi Gray MD Jun 23, 2017 08:34
--- NOTE | 2017-06-23 10:07 | DRSVH ---
[facility] [address] [place] [address] Echocardiogram Report Name: ZEUS TROY EStudy Date: 06/23/2017 Height: 68 in Hospital Exam Location: [facility] Weight: 211 lb Gender: Male BSA: 2.1 m2 : 1950 Age: 67 yrs BP: 158/88 mmHg Reason For Study: ENDOCARDITIS Ordering Physician: Viral Lackey Performed By: Jerson Brunson Referring Physician: Dr. Adilene Hanley Interpretation Summary The left ventricle is normal in size. The ejection fraction is estimated to be 65-70%. There has been no significant change since the previous study. There are no focal wall motion abnormalities. The right ventricle is moderately dilated. Right ventricular systolic function is mildly reduced. There has been no significant change since the previous study. The right ventricular systolic pressure is estimated at 30 mmHg assuming a right atrial pressure of 3 mm Hg. The left atrium is moderately dilated. The right atrium is moderate to severely dilated. There is moderate to severe tricuspid regurgitation. Compared to the prior echo exam, there has been no change in TR severity. There is no other significant valvular heart disease. There is no obvious valvular vegetation identified on this exam. Consider DEJON if there is a high degree of clinical suspicion for endocarditis and clinically appropriate. The ascending aorta is mildly enlarged. Procedure: A two-dimensional transthoracic echocardiogram with color flow and Doppler was performed in limited views only. The study quality was technically adequate. Comparison is made with the echocardiogram of 10/18/16. The patient was in atrial fibrillation with controlled ventricular rate during the exam. The patient had a heart rate of 63-87 beats per minute. Left Ventricle: The left ventricle is normal in size. There is normal left ventricular wall thickness. The ejection fraction is estimated to be 65-70%. There has been no significant change since the previous study. There are no focal wall motion abnormalities. Right Ventricle: The right ventricle is moderately dilated. Right ventricular systolic function is mildly reduced. There has been no significant change since the previous study. Atria: The left atrium is moderately dilated. The right atrium is moderate to severely dilated. The interatrial septum is intact with no evidence for an atrial septal defect. Mitral Valve: The mitral valve is normal in structure and function. There is trace mitral regurgitation. Aortic Valve: The aortic valve is trileaflet. The aortic valve opens well. No aortic regurgitation is present. Tricuspid Valve: The tricuspid valve leaflets are thin and pliable. There is moderate to severe tricuspid regurgitation. Compared to the prior echo exam, there has been no change in TR severity. The right ventricular systolic pressure is estimated at 30 mmHg assuming a right atrial pressure of 3 mm Hg. Pulmonic Valve: The pulmonic valve leaflets are thin and pliable; valve motion is normal. There is trace pulmonic regurgitation. There is no other significant valvular heart disease. There is no obvious valvular vegetation identified on this exam. Consider DEJON if there is a high degree of clinical suspicion for endocarditis and clinically appropriate. Great Vessels: The aortic root is normal size. The ascending aorta is mildly enlarged. The pulmonary artery is normal size. The IVC is of normal diameter and collapses greater than 50% with a sniff. This suggests a low right atrial pressure of 3 mm Hg. MMode/2D Measurements & Calculations LVIDd: 4.5 cm RA long axis asc Aorta LVIDs: 2.9 cm LA A2 area: 26.8 cm Diam: 3.6 cm FS: 36.2 % LA A4 area: 30.3 cm RA area IVSd: 0.78 cm LA length (vol): 8.2 cm LVPWd: 1.0 cm LA vol: 84.4 ml : 28.9 cm LA vol index RA vol: 94.8 ml RA : 45.4 mm2 IVC diam: 1.5 cm LV ge. diameter/BSA LV sys. diameter/BSA RVD1 (basal) RVD2 (mid) (cm/m^2): 2.1 (cm/m^2): 1.4 : 4.9 cm Doppler Measurements & Calculations TR max parth: 262.1 cm/sec TR max P.5 mmHg Reading Physician:DENISE
--- NOTE | 2017-06-23 12:34 | NUR ---
Inpatient Wound Nurse Conversation completed with patient's primary nurse this afternoon. No wound needs identified. CWON available to see patient if specific wound needs identified, will no longer follow unless needs change.
[2017-06-23] MEDS ORDERED: Oritavancin Diphosphate 400 mg Vial IV ONE (13:35)
[2017-06-23] MEDS ORDERED: OXYC1TAB24 PO (14:07)
--- NOTE | 2017-06-23 14:09 | PCM.DIMED ---
Discharge Instructions Date of Service Jun 23, 2017 Dates of Hospitalization Jun 14, 2017 at 12:26 Discharge Diagnosis Discharge Diagnosis Left lower extremity cellulitis Diet Discharge Diet: No restrictions Activity Discharge Activity: No restrictions Call your provider Call your provider for: Fever or Chills Patient Instructions Patient Instructions You were hospitalized with soft tissue infection in your left leg. You were found to have bacteria in your blood. You were treated well with IV antibiotics and finished a course of treatment. Please follow-up with Dr. Gonzalez has a scheduled. Please also follow up with your primary doctor in 2 weeks Follow-up Provider: Dre Hanley MD Follow-up with PCP in: 2 weeks Provider: Cy Gonzalez MD Follow-up in: 1 week Avi Gray MD Jun 23, 2017 14:09
[2017-06-23] MEDS ORDERED: Oritavancin Diphosphate 1,200 MG in Dextrose 5% 880 ML IV ONE (14:30)
--- NOTE | 2017-06-23 14:36 | PCM.DC.MED ---
Discharge Summary Date of Service Jun 23, 2017 Dates of Hospitalization Date of Hospital Admission Jun 14, 2017 at 12:26 Date of Discharge: Jun 23, 2017 Providers: Admitting Physician: Alvaro Simpson MD Primary Care Physician: Dre Hanley MD Attending Physician: Avi Marroquin MD Diagnosis at Time of Discharge Diagnosis at Time of Discharge acute dx Beta strep group G bacteremia secondary to cellulitis and pyomyositis on LLE BERTRAM , resolved with fluid resuscitation Increased urinary frequency chronic dx > HTN > Afib rate controlled > CAD s/p CABG, Consultations ID Procedures Other Diagnostics PROCEDURE: MRI TIBIA FIBULA LEFT WITH AND WITHOUT CONTRAST (60210) INDICATIONS: 67-year-old male with left lower extremity cellulitis. Evaluate for osteomyelitis. TECHNIQUE: Noncontrast coronal T1 spin echo and STIR, sagittal T1 spin echo with fat saturation and STIR, axial T1 spin echo and T2 fast spin echo with fat saturation. After the administration of contrast, axial/sagittal/coronal T1 spin echo with fat saturation through the right lower leg. COMPARISON: None. FINDINGS: Image quality: Excellent. Bones: The visualized bone marrow demonstrates normal signal on all sequences. The overlying cortex appears intact. No abnormal intraosseous enhancement. Soft tissues: Subcutaneous tissues demonstrate circumferential moderate edema with associated interstitial enhancement. The scanned muscles demonstrate normal overall bulk and internal signal, except for localized interstitial edema and enhancement involving the peroneus muscle on axial image 25. Sagittal images demonstrate fusiform thickening of the Achilles tendon. IMPRESSION: 1. Findings consistent with extensive left lower extremity cellulitis, along with changes consistent with early pyomyositis involving the midportion of the peroneus muscle lateral to the fibular shaft. 2. No abscess formation. No findings to suggest necrotizing fasciitis. 3. Distal Achilles tendinopathy, without tears. Dictated by: Ochoa Nicholas M.D. on 06/16/2017 at 21:02 Approved by: Ochoa Nicholas M.D. on 06/16/2017 at 21:10 PROCEDURE: US VEINOUS LEG DUPLEX UNILATERAL, LEFT INDICATIONS: Cellulitis , edema , concerning for DVT. TECHNIQUE: Real-time imaging, as well as color and pulse Doppler interrogation, were performed of the lower extremity deep veins from the inguinal ligament to the popliteal fossa. COMPARISON: None. FINDINGS: The deep veins are normally compressible, and free of intraluminal thrombus. Color and pulse Doppler demonstrate normal phasic intraluminal flow. There is normal augmentation response to distal compression maneuver. There is marked soft tissue swelling. IMPRESSION: 1. No deep venous thrombosis in the left lower extremity. 2. Marked soft tissue swelling. Dictated by: Radha Weaver M.D. on 06/16/2017 at 9:04 Approved by: Radha Weaver M.D. on 06/16/2017 at 9:10 Brief History HPI obtained by Dr. Simpson on 06/14 Patient is a 67 yo male with pmh of afib (on coumadin), HTN, CAD (s/p CABG), Hypercholestrolemia, who is being admitted for cellulitis complicated with septicemia. He said his symptoms started about 3-4 days ago when he was at work , started feel chills, muscle aches, as if it was "flu". He came to ER , had leukocytosis with left shift and was found to have cellulitis in his left foot. He was given oral abx and sent home. Blood Cx were taken at that point. Patient said he felt a little better, however did not feel a lot of difference since he was discharged from ER. He then received a call from [facility] regarding his positive blood cultures (Beta strep group G) and was asked to come to the hospital. He denies chest pain, shortness of breath. However does endorse some diarrhea couple of days ago. Patient said the erythema and edema around his left leg has decreased from what it was couple of days ago. In ER : Vitals stable, afebrile, no leukocytosis. Hospital Course Patient is a 67 yo male with pmh of afib (on coumadin), HTN, CAD (s/p CABG), Hypercholestrolemia, who is being admitted for cellulitis complicated with bacteremia and pyomyositis acute dx Beta strep group G bacteremia secondary to cellulitis and pyomyositis on LLE MRI of LLE showed no abscesses, did show pyomyositis of peroneal muscle. Initial Blood cultures on 06/13 X 2 positive group G strep, which fits in with patient's presentation of cellulitis. pt was broadened antibiotics to vanc + zosyn initially then switching back to just ceftriaxone after talking to Dr. Gonzalez on the 06/18 to avoid nephrotoxicity per . Repeat serial blood cultures, showed no growth tod ate. DVT studies negative on 06/16, again on . TTE was negative of vegetation. patient was clinically improving with Ceftriaxone 2g q12h. recommended One dose of Oritavancin for bacteremia. Patient will follow up with on 07/02. BERTRAM , resolved with fluid resuscitation Increased urinary frequency, POA UA: neg, resolved chronic dx > HTN > Afib rate controlled, on warfarin , > CAD s/p CABG, continue home meds : beta ryland, TEREZA i, statins Exam Vital Signs (Last) Date Time Temp Pulse Resp B/P Pulse Ox O2 Delivery O2 Flow Rate FiO2 06/23/17 07:45 37.2 84 16 139/80 99 Room Air Exam pt was examined on the day of d/c Test 06/14/17 12:09 06/15/17 06:40 06/16/17 15:43 06/17/17 06:05 Hold [place] Top Tube Received (Received) Hemoglobin A1c 5.8% (4.8-5.6) Urine Color Straw (YELLOW) Urine Appearance Clear (CLEAR,HAZY) Urine pH 5.5 (5.0-8.0) Urine Specific [place] <1.005 (1.003-1.035) Urine Protein Negativemg/dL (NEG,TRACE) Urine Glucose (UA) Negativemg/dL (NEGATIVE) Urine Ketones Negativemg/dL (NEGATIVE) Urine Occult Blood Negative (NEGATIVE) Urine Nitrite Negative (NEGATIVE) Urine Bilirubin Negative (NEGATIVE) Urine Urobilinogen Normalmg/dL (NORMAL) Urine Leukocyte Esterase Negative (NEGATIVE) Urine RBC 0-2/hpf (0-2) Urine WBC 0-5/hpf (0-5) Urine Epithelial Cells Occasional/hpf (NONE-MOD) Urine Crystals None seen (NONE SEEN) Urine Bacteria None/hpf (NONE-FEW) Urine Hyaline Casts 5/20/lpf (NONE) Urine Granular Casts None seen (NONE SEEN) Urine Waxy Casts None seen (NONE SEEN) Urine Red Blood Cell Casts None seen (NONE SEEN) Urine White Blood Cell Casts None seen (NONE SEEN) Urine Mucus None seen (None Seen) Urine Trichomonas None seen (NONE SEEN) Urine Yeast None (NONE SEEN) Urinalysis Comment None Urine Culture Reflexed Not indicated Streptozyme 94.0IU/mL (0.0-200.0) Test 06/19/17 00:57 06/21/17 06:01 06/23/17 05:55 Vancomycin Level Trough 14.0mcg/mL Erythrocyte Sedimentation Rate 52mm/hr (0-30) C-Reactive Protein 10.7mg/dL (0.0-0.5) White Blood Count 6.4th/mm3 (3.8-10.1) Red Blood Count 3.47mil/mm3 (4.40-5.80) Hemoglobin 11.3g/dL (13.8-17.2) Hematocrit 34.0% (41.0-50.0) Mean Corpuscular Volume 98.0fL (81-100) Mean Corpuscular Hemoglobin 32.6pg (27.0-35.0) Mean Corpuscular Hemoglobin Concent 33.2% (32.0-37.0) Red Cell Distribution Width 12.3% (12.3-15.4) Platelet Count 383bil/L (150-400) Neutrophils (%) (Auto) 72.3% (40-74) Lymphocytes (%) (Auto) 12.3% (14-46) Monocytes (%) (Auto) 11.7% (4-12) Eosinophils (%) (Auto) 2.5% (0-5) Basophils (%) (Auto) 0.6% (0-3) Prothrombin Time 25.4sec (8.1-12.5) Prothromb Time International Ratio 2.33ratio Sodium Level 140mEq/L (134-144) Potassium Level 3.4mEq/L (3.5-5.2) Chloride Level 98mEq/L (97-108) Carbon Dioxide Level 29mmol/L (18-29) Blood Urea Nitrogen 14mg/dL (8-27) Creatinine 0.87mg/dL (0.76-1.27) Estimat Glomerular Filtration Rate 92mL/min (>59) Glucose Level 110mg/dL (60-99) Calcium Level 8.7mg/dL (8.5-10.1) Phosphorus Level 3.2mg/dL (2.5-4.9) Magnesium Level 1.8mg/dL (1.6-2.6) Total Bilirubin 0.5mg/dL (0.0-1.2) Aspartate Amino Transf (AST/SGOT) 36U/L (0-50) Alanine Aminotransferase (ALT/SGPT) 37U/L (0-44) Alkaline Phosphatase 61U/L (25-160) Total Protein 5.5g/dL (6.4-8.4) Albumin 3.0g/dL (3.4-5.0) Procalcitonin 0.33ng/mL (0.00-0.08) Microbiology Results EDUARDO CULTURE BLOOD Preliminary 06/14/17-714 Organism 1 BETA STREPTOCOCCUS GROUP G SENSITIVITY COMMENTS Susceptibilty testing to follow. X2 Discharge Medications Discharge Medications Atenolol (Atenolol) 100 Mg Tablet 100 MG PO DAILY (Reported) Atorvastatin Calcium (Atorvastatin Calcium) 40 Mg Tablet 40 MG PO DAILY ( Reported) Potassium Chloride (Potassium Chloride) 20 Meq Tab.er.prt 20 MEQ PO BID ( Reported) TAKE WITH FOOD Torsemide (Torsemide) 20 Mg Tablet 20 MG PO DAILY (Reported) Warfarin Sodium (Coumadin) 5 Mg Tablet 2.5-5 MG PO DAILY (Reported) friday 5mg fri,, 2.5mg fri 5mg fri , fri, fri 2.5mg As needed oxyCODONE-Acetaminophen 5-325 mg (oxyCODONE-Acetaminophen 5-325 mg) 1 Each Tablet 1 TAB PO Q4H PRN PRN For Pain Prescribed by: AVI MARROQUIN MD Miscellaneous Medications Irbesartan (Irbesartan) 150 Mg Tablet Unknown Dose PO (Reported) Followup Plan Disposition: home Discharge Diet: No restrictions Discharge Activity: No restrictions Patient Instructions You were hospitalized with soft tissue infection in your left leg. You were found to have bacteria in your blood. You were treated well with IV antibiotics and finished a course of treatment. Please follow-up with Dr. Gonzalez has a scheduled. Please also follow up with your primary doctor in 2 weeks Follow-up Provider: Dre Hanley MD Follow-up with PCP in: 2 weeks Provider: Cy Gonzalez MD Follow-up in: 1 week Time spent 65min Avi Marroquin MD Jun 23, 2017 14:18
--- NOTE | 2017-06-23 14:45 | NUR ---
Social Work-discharge: Data:EMR reviewed. Pt is on day 9 of hospitalization for strep bacteremia per H&P. Pt is medically stable for discharge. Pt has been up independent in his room. No discharge needs identified. All updated and agreeable to plan. Assessment:pt who is independent at baseline. Plan:Pt to discharge home today via POV. No discharge needs identified. All updated and agreeable to plan. JAVON Solomon
[2017-06-23 16:00] VITALS: BP 171/87; PULSE 68; RESP 18; O2SAT 100
--- NOTE | 2017-06-23 16:09 | CONS ---
[address] [address] CONSULTATION REPORT PATIENT: ZEUS TROY : 1950 MR#: [id number] ADMIT: 06/14/2017 JOB ID: [id number] DATE OF SERVICE: 06/23/[address] Dixie Castro for this timely consult. REASON FOR CONSULTATION: Severe and bacteremic left lower extremity infection. HISTORY OF THE PRESENT ILLNESS: I have been on vacation over the past nine days, but I have had numerous phone calls and questions about this patient and reviewed pictures of his leg periodically through this admission and the events leading up to this admission. The patient was initially seen in the ER back on June 13. At that time, he reports the onset of violent shaking chills associated with fever, malaise, and sudden onset of left lower extremity and ankle swelling. This was accompanied by diffuse flu-like symptoms. He notes he had never had any infection like this before and it was extremely disconcerting to him as he had violent shaking chills. He was seen in the ER and was found to have an elevated white count but normal lactate. He was given a dose of IV clindamycin as well as a dose of IV ceftriaxone and was sent home on oral clindamycin. Blood cultures were done during that ED visit. Subsequent to that ED visit, his blood cultures returned positive, and I was contacted on June 14 by the ER as to what to do. I recommended he come back and be admitted as all of his blood cultures were growing a beta hemolytic streptococcal organism. He was subsequently brought back and readmitted through the ED on June 14. We knew that this was a beta Strep and, in fact, group G Strep, and for that reason, he was started on ceftriaxone which would almost always be effective. Following his admission and the institution of the appropriate ceftriaxone therapy, the patient failed to improve. At that point, there was great concern about whether he had some more severe underlying process and appropriately additional imaging was done on the which included a tib-fib MRI. The radiologist noted findings consistent with extensive left lower extremity cellulitis with possible early pyomyositis involving the midportion of the peroneus muscle lateral to the fibular shaft. There was no abscess and nothing suggested necrotizing infection. He also had two different ultrasounds done of the left lower extremity which failed to show any clot. Today, the patient tells me he is finally starting to improve. He no longer has any fevers, chills or sweats, and the pain in his left lower extremity below the knee is diminishing. He can now get up and walk around the room without undue difficulty and states that his overall health is returning to baseline. He also notes that his chronically ill is still at home alone, and he would really like to get out of the hospital as he has now been here a total of almost 10 days with this process. PAST MEDICAL HISTORY: 1. Organic heart disease. a. Atrial fibrillation. b. Coronary artery disease, status post CABG. 2. Hypertension. 3. Hyperlipidemia. 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. He does not smoke cigarettes and he is concerned about the fact that it is reported in many notes already from this admission that he does smoke cigarettes. He notes he has not smoked in 3-1/2 decades. He consumes alcohol very rarely and lives with his in the [facility]. FAMILY HISTORY: Negative for TB in first- and second-degree relatives. REVIEW OF SYSTEMS: Today, the patient has no fevers, chills or sweats. He has no headache, no acute visual change. No sore throat or trouble swallowing. No stiff neck. No cough, shortness of breath, nausea, vomiting, or diarrhea. No dysuria, urgency, or frequency. No problems with his right leg, though of course, his left leg is the focus of the problem and he has a great deal of erythema and tenderness below the left knee but is gradually improving. Remainder of the review of systems is negative. PHYSICAL EXAMINATION: Reveals an afebrile gentleman, temp 37.2, pulse 84, respiratory rate 16, blood pressure 139/80. He is saturating 99% on room air. Examination of the head: No trauma. Eyes without conjunctivitis. Oral cavity without thrush or pharyngitis. Neck is supple. There are no herpetic lesions on the lips. Lungs are clear. Cardiac tones irregular rate and rhythm without notable murmur. Abdomen soft and nontender without organomegaly. No suprapubic fullness. No inguinal adenopathy is noted. The right lower extremity is basically normal. The left lower extremity is notable for a confluent circumferential cellulitis starting just below the knee which goes down and extends to and involves the ankle. There is no evidence of synovitis of the knee nor the left ankle. The patient does have good range of motion of the left foot and ankle and the cellulitic area is only mildly warm at this point, and minimally tender around the midportion of the calf. Neurologically, he is intact. He can move all extremities with good strength and there is no evidence of any sensory abnormality. No synovitis is noted. No skin rash except that around his left lower extremity. LABORATORIES: Include a white count was 14,000 when he came in, basically 10 days ago. It has been normal ever since, and today it is 6400. His creatinine is 0.87. His LFTs are normal. Procalcitonin today 0.33, which is down from 23 on admission, so an almost 99% drop. Urinalysis was unremarkable. Streptozyme was negative but the blood cultures, of course, from the in the ED di grow up a penicillin susceptible group G Strep. It was also very sensitive to ceftriaxone as well as vancomycin. IMAGING: Imaging includes the above-mentioned MRI scan which showed some possible early peroneus pyomyositis perhaps, as well as cellulitis, but no necrotizing fasciitis. Ultrasound for clot negative x2. IMPRESSION: This is a relatively healthy, 67-year-old gentleman with some old coronary artery disease who presents with really a life-threatening cellulitis of the left lower extremity with rigors, leukocytosis, high fevers, and very impressive cellulitis. It has taken him a long time to improve and he is still not near normal after almost 10 days of therapy, but he has improved enough that I think he could be reasonably discharged. Oral antibiotics might be reasonable here, but it is worth noting this is a clindamycin-resistant organism which explains why he failed clindamycin during his 1st trial of outpatient therapy. I am also not completely sanguine about sending him home given the severity and duration of this process with oral antibiotics. This is a good situation to use one of the long-acting lipoglycopeptide agents. At this point, we are going to give him a single dose of oritavancin. RECOMMENDATIONS: 1. Discontinue ceftriaxone. 2. Oritavancin 1200 mg x1. 3. The patient can be discharged at any time and I have contacted Dr. Gray and discussed this with him. 4. The patient should see me in clinic, July 02, to make sure he is continuing to improve and I have told him that. Thank you very much. Infectious Disease will now sign off, having written for the oritavancin and discussing the case with Dr. Gray.
--- NOTE | 2017-06-23 18:40 | NUR ---
Discharge Reviewed DC instructions with patient. Stated understanding All belongings taken. IV site bleed, pressure applied for 5 min. Pt taken down in w/ch to home in private vehicle.
== END 2017-06-23 18:40 | disposition home or self-care (01) | DRG 872 ==
LOC: SED 11:12 → MOC 12:26
PROVIDERS: ADMIT Internal Medicine; ATTEND Internal Medicine
DX: R78.81 Bacteremia (principal); L03.116 Cellulitis of left lower limb; N17.9 Acute kidney failure, unspecified; M60.08 Infective myositis, other site; L53.9 Erythematous condition, unspecified; B95.4 Other streptococcus as the cause of diseases classified elsewhere; I10 Essential (primary) hypertension; F17.210 Nicotine dependence, cigarettes, uncomplicated; I25.10 Atherosclerotic heart disease of native coronary artery without angina pectoris; Z95.1 Presence of aortocoronary bypass graft; I48.91 Unspecified atrial fibrillation; Z79.01 Long term (current) use of anticoagulants; Z66 Do not resuscitate